=== PATIENT | male | born 1940 | race Caucasian/White ===

== ENCOUNTER → 2017-08-30 09:59 | Outpatient (CLI) | payer MEDICARE, OTHER, SELFPAY ==
[2017-08-30 12:32] LABS: Absolute Neutrophil Count 4.2 X10^3/uL (2.0-7.7); Basophil# 0.01 X10^3/uL; Basophil% 0.1 % (0-1); Eosinophil# 0.34 X10^3/uL; Eosinophils% 4.9 % (0-5); Hematocrit 42.2 % (40-54); Hemoglobin 13.8 g/dl (13.0-16.5); Lymphocyte % 24.4 % (19-41); Mean Corp Hgb Conc 32.7 g/gl (32-36); Mean Corpuscular Hgb 30.7 pg (27.0-32.0); Mean Platelet Vol. 10.9 fl (6.2-12.0); Monocyte# 0.66 X10^3/uL; Monocyte% 9.5 % (0-10); Neutrophil # 4.24 X10^3/uL (2.7-7.7); Platelet Count 200 K/mm3 (150-450); RBC Distribution Width CV 12.7 % (11.6-14.6); RBC Distribution Width SD 43.4 fl (35.1-43.9); Red Blood Count 4.49 M/mm3 (4.6-6.2)
[2017-08-30 12:35] LABS: POSITIVE COUNT NO; POSITIVE DIFFERENTIAL NO; POSITIVE MORPHOLOGY NO
[2017-08-30 13:05] LABS: Vitamin D,25 Hydroxy 22.8 ng/mL (19.95-100.01)
[2017-08-30 13:17] LABS: ALB/GLOB Ratio 1.2 RATIO (0.9-2.4); AST(SGOT) 17 U/L (15-37); Alanine Aminotransfer ALT/SGPT 26 U/L (16-61); Albumin, Serum 3.4 g/dL (3.2-5.0); Alkaline Phosphatase 62 U/L (45-117); Anion Gap 8 (5-15); BUN 19 mg/dL (7-18); BUN/Creat Ratio 19.3 RATIO (10-20); Calcium,Total 8.3 mg/dL (8.5-10.1); Chloride 105 mmol/L (98-107); Creatinine, Serum 0.98 mg/dL (0.70-1.30); EST Glomerular Filtration Rate 79 mL/min (>60); Est Glom Filt Rate - Afr Amer 95 mL/min (>60); Globulin 2.9 g/dL (2.2-4.2); Glucose 64 mg/dL (74-106); Potassium 3.7 mmol/L (3.5-5.1); Protein, Total 6.3 g/dL (6.4-8.2); Sodium Level 142 mmol/L (136-145); Thyroid Stim Hormone (TSH) 1.66 uIU/mL (0.358-3.74)
== END ==
PROVIDERS: Family Provider Family Medicine Geriatric Medicine; PCP Family Medicine Geriatric Medicine; Visit Provider Family Medicine Geriatric Medicine
DX: R53.83 Other fatigue (principal); E55.9 Vitamin D deficiency, unspecified
CPT/HCPCS: 36415; 80053; 82306; 84443; 85025

== ENCOUNTER → 2017-09-06 13:42 | Outpatient (CLI) | payer MEDICARE, OTHER, SELFPAY ==
--- NOTE | 2017-09-06 15:06 | NEURO ---
NCS and/or EMG Patient Report Ordering Doctor: Navi Crews Chi DATE OF SERVICE: 09/06/17 Veronica Thapa is a 76-year-old male with chief complaint of bilateral hand numbness. He presents for electrodiagnostic testing of the upper limbs. Letter diagnostic findings: Right median motor nerve demonstrates mildly prolonged distal latency with normal amplitude and conduction velocity. Left median motor nerve demonstrates borderline prolonged distal latency with normal amplitude and conduction velocity. Normal ulnar motor response bilaterally. Normal median and ulnar F waves. Prolonged median sensory latency is noted bilaterally. Normal ulnar and radial sensory responses. On needle EMG, all muscles tested in the upper limbs showed no evidence of denervation with normal motor unit action potentials. Electrodiagnostic impression: This is an abnormal study in the upper limbs. 1. Electrodiagnostic findings demonstrate bilateral median mononeuropathy. This is consistent with a mild bilateral carpal tunnel syndrome. If there are any questions in regards to this exam, please do not hesitate to contact me.
== END ==
PROVIDERS: Family Provider Family Medicine Geriatric Medicine; PCP Family Medicine Geriatric Medicine; Visit Provider Family Medicine Geriatric Medicine
DX: R20.0 Anesthesia of skin (principal)
CPT/HCPCS: 95886; 95912

== ENCOUNTER → 2018-02-28 11:07 | Outpatient (CLI) | payer MEDICARE, OTHER, SELFPAY ==
[2018-02-28 13:13] LABS: Absolute Lymphocyte Count 1.41 X10^3/ul (0.83-4.51); Basophil# 0.02 X10^3/uL; Basophil% 0.3 % (0-1); Eosinophil# 0.25 X10^3/uL; Hemoglobin 13.8 g/dl (13.0-16.5); Lymphocyte # 1.41 X10^3/ul (4.0); Lymphocyte % 22.7 % (19-41); Mean Corp Hgb Conc 33.7 g/gl (32-36); Mean Corpuscular Volume 92.1 fL (80-94); Mean Platelet Vol. 10.5 fl (6.2-12.0); Monocyte# 0.58 X10^3/uL; Monocyte% 9.3 % (0-10); Neutrophil # 3.95 X10^3/uL (2.7-7.7); Neutrophil % 63.5 % (47-70); POSITIVE COUNT NO; POSITIVE DIFFERENTIAL NO; POSITIVE MORPHOLOGY NO; Platelet Count 189 K/mm3 (150-450); RBC Distribution Width CV 12.7 % (11.6-14.6); RBC Distribution Width SD 42.8 fl (35.1-43.9); Red Blood Count 4.45 M/mm3 (4.6-6.2); White Blood Count 6.2 K/mm3 (4.4-11.0)
[2018-02-28 13:28] LABS: Vitamin D,25 Hydroxy 26.5 ng/mL (29.95-100.01)
[2018-02-28 13:35] LABS: ALB/GLOB Ratio 1.1 RATIO (0.9-2.4); AST(SGOT) 17 U/L (15-37); Alanine Aminotransfer ALT/SGPT 24 U/L (16-61); Albumin, Serum 3.3 g/dL (3.2-5.0); Alkaline Phosphatase 65 U/L (45-117); Anion Gap 8 (5-15); BUN 18 mg/dL (7-18); BUN/Creat Ratio 15.4 RATIO (10-20); Calcium,Total 8.3 mg/dL (8.5-10.1); Chloride 106 mmol/L (98-107); Creatinine, Serum 1.17 mg/dL (0.70-1.30); EST Glomerular Filtration Rate 64 mL/min (>60); Est Glom Filt Rate - Afr Amer 78 mL/min (>60); Glucose 81 mg/dL (74-106); Potassium 4.1 mmol/L (3.5-5.1); Protein, Total 6.3 g/dL (6.4-8.2); Sodium Level 141 mmol/L (136-145); Thyroid Stim Hormone (TSH) 1.61 uIU/mL (0.358-3.74)
== END ==
PROVIDERS: Family Provider Family Medicine Geriatric Medicine; PCP Family Medicine Geriatric Medicine; Visit Provider Family Medicine Geriatric Medicine
DX: R53.83 Other fatigue (principal); E55.9 Vitamin D deficiency, unspecified
CPT/HCPCS: 36415; 80053; 82306; 84443; 85025

== ENCOUNTER → 2018-03-29 15:33 | Outpatient (CLI) | payer MEDICARE, OTHER, SELFPAY ==
[2018-03-29 17:06] LABS: Absolute Lymphocyte Count 1.82 X10^3/ul (0.83-4.51); Absolute Neutrophil Count 4.3 X10^3/uL (2.0-7.7); Basophil# 0.03 X10^3/uL; Basophil% 0.4 % (0-1); Eosinophil# 0.33 X10^3/uL; Eosinophils% 4.6 % (0-5); Hematocrit 42.1 % (40-54); Hemoglobin 14.2 g/dl (13.0-16.5); Lymphocyte # 1.82 X10^3/ul (4.0); Lymphocyte % 25.5 % (19-41); Mean Corp Hgb Conc 33.7 g/gl (32-36); Mean Corpuscular Hgb 30.9 pg (27.0-32.0); Mean Corpuscular Volume 91.7 fL (80-94); Mean Platelet Vol. 11.4 fl (6.2-12.0); Monocyte# 0.65 X10^3/uL; Monocyte% 9.1 % (0-10); Neutrophil % 60.1 % (47-70); Platelet Count 206 K/mm3 (150-450); RBC Distribution Width CV 13.2 % (11.6-14.6); RBC Distribution Width SD 43.7 fl (35.1-43.9); Red Blood Count 4.59 M/mm3 (4.6-6.2); White Blood Count 7.2 K/mm3 (4.4-11.0)
[2018-03-29 17:07] LABS: POSITIVE COUNT NO; POSITIVE DIFFERENTIAL NO; POSITIVE MORPHOLOGY NO
[2018-03-29 17:23] LABS: ALB/GLOB Ratio 1.3 RATIO (0.9-2.4); AST(SGOT) 19 U/L (15-37); Alanine Aminotransfer ALT/SGPT 27 U/L (16-61); Albumin, Serum 3.6 g/dL (3.2-5.0); Alkaline Phosphatase 61 U/L (45-117); Anion Gap 9 (5-15); BUN 17 mg/dL (7-18); BUN/Creat Ratio 15.3 RATIO (10-20); Calcium,Total 8.3 mg/dL (8.5-10.1); Chloride 106 mmol/L (98-107); Creatinine, Serum 1.11 mg/dL (0.70-1.30); EST Glomerular Filtration Rate 68 mL/min (>60); Est Glom Filt Rate - Afr Amer 83 mL/min (>60); Globulin 2.8 g/dL (2.2-4.2); Glucose 78 mg/dL (74-106); Potassium 3.9 mmol/L (3.5-5.1); Protein, Total 6.4 g/dL (6.4-8.2); Sodium Level 140 mmol/L (136-145); Thyroid Stim Hormone (TSH) 1.58 uIU/mL (0.358-3.74)
== END ==
PROVIDERS: Family Provider Family Medicine Geriatric Medicine; PCP Family Medicine Geriatric Medicine; Visit Provider Family Medicine Geriatric Medicine
DX: R53.83 Other fatigue (principal)
CPT/HCPCS: 36415; 80053; 84443; 85025

== ENCOUNTER → 2018-08-16 11:49 | Outpatient (CLI) | payer MEDICARE, SELFPAY ==
[2018-04-26 09:35] VITALS: BMI 23.5
== END ==
PROVIDERS: Family Provider Family Medicine Geriatric Medicine; PCP Family Medicine Geriatric Medicine; Referring Provider Family Medicine Geriatric Medicine; Visit Provider Family Medicine Geriatric Medicine
DX: R50.9 Fever, unspecified (principal)
CPT/HCPCS: 87633

== ENCOUNTER → 2018-08-31 11:56 | Outpatient (CLI) | payer MEDICARE, SELFPAY ==
[2018-04-26 09:35] VITALS: BMI 23.5
[2018-08-31 13:14] LABS: Absolute Lymphocyte Count 2.21 X10^3/ul (0.83-4.51); Absolute Neutrophil Count 7.5 X10^3/uL (2.0-7.7); Basophil# 0.03 X10^3/uL; Basophil% 0.3 % (0-1); Eosinophil# 0.19 X10^3/uL; Eosinophils% 1.7 % (0-5); Hematocrit 46.7 % (40-54); Hemoglobin 15.4 g/dl (13.0-16.5); Lymphocyte # 2.21 X10^3/ul (4.0); Lymphocyte % 20.1 % (19-41); Mean Platelet Vol. 10.8 fl (6.2-12.0); Monocyte# 0.93 X10^3/uL; Monocyte% 8.5 % (0-10); Neutrophil # 7.52 X10^3/uL (2.7-7.7); Neutrophil % 68.4 % (47-70); Platelet Count 169 K/mm3 (150-450); RBC Distribution Width CV 13.4 % (11.6-14.6); RBC Distribution Width SD 44.4 fl (35.1-43.9); Red Blood Count 4.97 M/mm3 (4.6-6.2)
[2018-08-31 13:16] LABS: POSITIVE COUNT NO; POSITIVE DIFFERENTIAL NO; POSITIVE MORPHOLOGY NO
[2018-08-31 13:44] LABS: ALB/GLOB Ratio 1.3 RATIO (0.9-2.4); AST(SGOT) 20 U/L (15-37); Alanine Aminotransfer ALT/SGPT 53 U/L (16-61); Albumin, Serum 3.5 g/dL (3.2-5.0); Alkaline Phosphatase 74 U/L (45-117); Anion Gap 6 (5-15); BUN 19 mg/dL (7-18); Calcium,Total 8.7 mg/dL (8.5-10.1); Chloride 105 mmol/L (98-107); Creatinine, Serum 1.27 mg/dL (0.70-1.30); EST Glomerular Filtration Rate 59 mL/min (>60); Est Glom Filt Rate - Afr Amer 71 mL/min (>60); Globulin 2.7 g/dL (2.2-4.2); Glucose 69 mg/dL (74-106); Potassium 4.5 mmol/L (3.5-5.1); Protein, Total 6.2 g/dL (6.4-8.2); Sodium Level 141 mmol/L (136-145); Thyroid Stim Hormone (TSH) 1.32 uIU/mL (0.358-3.74)
[2018-08-31 14:25] LABS: Vitamin D,25 Hydroxy 18.7 ng/mL (29.95-100.01)
== END ==
PROVIDERS: Family Provider Family Medicine Geriatric Medicine; PCP Family Medicine Geriatric Medicine; Visit Provider Family Medicine Geriatric Medicine
DX: R53.83 Other fatigue (principal); E55.9 Vitamin D deficiency, unspecified
CPT/HCPCS: 36415; 80053; 82306; 84443; 85025

== ENCOUNTER → 2019-03-04 08:53 | Outpatient (CLI) | payer MEDICARE, SELFPAY ==
[2018-04-26 09:35] VITALS: BMI 23.5
[2019-03-04 11:27] LABS: Absolute Lymphocyte Count 1.31 X10^3/uL (0.83-4.51); Absolute Neutrophil Count 3.7 X10^3/uL (2.0-7.7); Basophil# 0.03 X10^3/uL; Basophil% 0.5 % (0-1); Eosinophil# 0.24 X10^3/uL; Eosinophils% 4.2 % (0-5); Hemoglobin 14.3 g/dL (13.0-16.5); Lymphocyte # 1.31 X10^3/ul (4.0); Lymphocyte % 22.9 % (19-41); Mean Corpuscular Hgb 31.4 pg (27.0-32.0); Mean Corpuscular Volume 92.1 fL (80-94); Mean Platelet Vol. 10.7 fl (6.2-12.0); Monocyte# 0.46 X10^3/uL; Monocyte% 8.1 % (0-10); NRBC Flagged by Analyzer 0 % (0-5); Neutrophil # 3.65 X10^3/uL (2.7-7.7); Neutrophil % 63.9 % (47-70); Platelet Count 192 K/mm3 (150-450); RBC Distribution Width CV 12.8 % (11.6-14.6); Red Blood Count 4.56 M/mm3 (4.6-6.2); White Blood Count 5.7 K/mm3 (4.4-11.0)
[2019-03-04 11:47] LABS: Vitamin D,25 Hydroxy 23.3 ng/mL (29.95-100.01)
[2019-03-04 11:55] LABS: BUN 17 mg/dL (7-18); Creatinine, Serum 1.23 mg/dL (0.70-1.30); Glucose 106 mg/dL (74-106)
[2019-03-04 11:56] LABS: ALB/GLOB Ratio 1.2 RATIO (0.9-2.4); AST(SGOT) 17 U/L (15-37); Alanine Aminotransfer ALT/SGPT 32 U/L (16-61); Albumin, Serum 3.5 g/dL (3.2-5.0); Alkaline Phosphatase 62 U/L (45-117); Anion Gap 7 (5-15); BUN/Creat Ratio 13.8 RATIO (10-20); Calcium,Total 8.7 mg/dL (8.5-10.1); Chloride 108 mmol/L (98-107); EST Glomerular Filtration Rate 61 mL/min (>60); Est Glom Filt Rate - Afr Amer 73 mL/min (>60); Globulin 2.9 g/dL (2.2-4.2); Potassium 3.9 mmol/L (3.5-5.1); Protein, Total 6.4 g/dL (6.4-8.2); Sodium Level 140 mmol/L (136-145); Thyroid Stim Hormone (TSH) 2.19 uIU/mL (0.358-3.74)
== END ==
PROVIDERS: Family Provider Family Medicine Geriatric Medicine; PCP Family Medicine Geriatric Medicine; Visit Provider Family Medicine Geriatric Medicine
DX: R53.83 Other fatigue (principal); E55.9 Vitamin D deficiency, unspecified
CPT/HCPCS: 36415; 80053; 82306; 84443; 85025

== ENCOUNTER → 2019-05-22 10:39 | Outpatient (CLI) | payer MEDICARE, SELFPAY ==
[2019-04-30 08:04] VITALS: BMI 24.7
--- NOTE | 2019-05-22 10:50 | RAD_ITS ---
STUDY: X-RAY - ABDOMEN/PELVIS REASON FOR EXAM: Male, 78 years old. Abdominal pain, fecal impaction TECHNIQUE: AP supine and upright views of the abdomen and pelvis. COMPARISON: None. FINDINGS: Normal visualized lung bases. There is an unremarkable bowel gas pattern. There is no demonstrated free abdominal air. The visualized liver, spleen and kidneys are grossly normal in size and morphology. Normal soft tissue structures. Moderate dextroscoliosis of the lumbar spine with diffuse degenerative disc disease. RAD/Abd Inc Decub and/or Erect IMPRESSION: Normal x-ray examination of the abdomen and pelvis. Electronically Signed: Leo Colorado MD at 16:52 EST Tel , Service support ,
== END ==
PROVIDERS: Family Provider Family Medicine Geriatric Medicine; PCP Family Medicine Geriatric Medicine; Referring Provider Family Medicine Geriatric Medicine; Visit Provider Family Medicine Geriatric Medicine
DX: K56.41 Fecal impaction (principal)
CPT/HCPCS: 74019

== ENCOUNTER → 2019-09-02 10:00 | Outpatient (CLI) | payer MEDICARE, SELFPAY ==
[2019-04-30 08:04] VITALS: BMI 24.7
[2019-09-02 12:18] LABS: Absolute Lymphocyte Count 1.54 X10^3/uL (0.83-4.51); Absolute Neutrophil Count 4.7 X10^3/uL (2.0-7.7); Basophil# 0.04 X10^3/uL; Basophil% 0.6 % (0-1); Eosinophil# 0.29 X10^3/uL; Eosinophils% 4.1 % (0-5); Hematocrit 48.5 % (40-54); Hemoglobin 15.8 g/dL (13.0-16.5); Lymphocyte # 1.54 X10^3/ul (4.0); Lymphocyte % 21.7 % (19-41); Mean Corp Hgb Conc 32.6 g/dL (32-36); Mean Corpuscular Hgb 30.9 pg (27.0-32.0); Mean Corpuscular Volume 94.7 fL (80-94); Mean Platelet Vol. 10.8 fl (6.2-12.0); Monocyte# 0.51 X10^3/uL; Monocyte% 7.2 % (0-10); NRBC Flagged by Analyzer 0 % (0-5); Platelet Count 199 K/mm3 (150-450); RBC Distribution Width CV 12.3 % (11.6-14.6); RBC Distribution Width SD 43.3 fl (35.1-43.9); Red Blood Count 5.12 M/mm3 (4.6-6.2); White Blood Count 7.1 K/mm3 (4.4-11.0)
[2019-09-02 12:34] LABS: ALB/GLOB Ratio 1.1 RATIO (0.9-2.4); AST(SGOT) 15 U/L (15-37); Alanine Aminotransfer ALT/SGPT 32 U/L (16-61); Albumin, Serum 3.6 g/dL (3.2-5.0); Alkaline Phosphatase 68 U/L (45-117); Anion Gap 7 (5-15); BUN 19 mg/dL (7-18); BUN/Creat Ratio 14.4 RATIO (10-20); Calcium,Total 8.7 mg/dL (8.5-10.1); Chloride 105 mmol/L (98-107); Creatinine, Serum 1.32 mg/dL (0.70-1.30); EST Glomerular Filtration Rate 56 mL/min (>60); Est Glom Filt Rate - Afr Amer 68 mL/min (>60); Globulin 3.3 g/dL (2.2-4.2); Glucose 82 mg/dL (74-106); Protein, Total 6.9 g/dL (6.4-8.2); Sodium Level 140 mmol/L (136-145)
[2019-09-03 09:10] LABS: Vitamin D,25 Hydroxy 24.5 ng/mL
== END ==
PROVIDERS: PCP Family Medicine Geriatric Medicine; Visit Provider Family Medicine Geriatric Medicine
DX: R53.83 Other fatigue (principal); E55.9 Vitamin D deficiency, unspecified
CPT/HCPCS: 36415; 80053; 82306; 84443; 85025

== ENCOUNTER → 2020-03-12 11:23 | Outpatient (CLI) | payer MEDICARE, SELFPAY ==
[2019-04-30 08:04] VITALS: BMI 24.7
[2020-03-12 12:50] LABS: Absolute Lymphocyte Count 1.64 X10^3/uL (0.83-4.51); Absolute Neutrophil Count 3.7 X10^3/uL (2.0-7.7); Basophil# 0.04 X10^3/uL; Basophil% 0.6 % (0-1); Eosinophil# 0.38 X10^3/uL; Eosinophils% 6.1 % (0-5); Hematocrit 44.3 % (40-54); Hemoglobin 14.6 g/dL (13.0-16.5); Lymphocyte # 1.64 X10^3/ul (4.0); Lymphocyte % 26.2 % (19-41); Mean Corpuscular Hgb 31.4 pg (27.0-32.0); Mean Corpuscular Volume 95.3 fL (80-94); Mean Platelet Vol. 10.7 fl (6.2-12.0); Monocyte# 0.49 X10^3/uL; Monocyte% 7.8 % (0-10); NRBC Flagged by Analyzer 0 % (0-5); Neutrophil # 3.67 X10^3/uL (2.7-7.7); Neutrophil % 58.5 % (47-70); Platelet Count 228 K/mm3 (150-450); RBC Distribution Width CV 12.3 % (11.6-14.6); RBC Distribution Width SD 42.9 fl (35.1-43.9); Red Blood Count 4.65 M/mm3 (4.6-6.2); White Blood Count 6.3 K/mm3 (4.4-11.0)
[2020-03-12 13:18] LABS: Vitamin D,25 Hydroxy 35.5 ng/mL
[2020-03-12 13:29] LABS: ALB/GLOB Ratio 1.2 RATIO (0.9-2.4); AST(SGOT) 17 U/L (15-37); Alanine Aminotransfer ALT/SGPT 24 U/L (16-61); Albumin, Serum 3.5 g/dL (3.2-5.0); Alkaline Phosphatase 79 U/L (45-117); Anion Gap 4 (5-15); BUN 14 mg/dL (7-18); BUN/Creat Ratio 10.9 RATIO (10-20); Calcium,Total 8.1 mg/dL (8.5-10.1); Chloride 107 mmol/L (98-107); Creatinine, Serum 1.28 mg/dL (0.70-1.30); EST Glomerular Filtration Rate 58 mL/min (>60); Est Glom Filt Rate - Afr Amer 70 mL/min (>60); Globulin 2.9 g/dL (2.2-4.2); Glucose 96 mg/dL (74-106); Potassium 3.8 mmol/L (3.5-5.1); Protein, Total 6.4 g/dL (6.4-8.2); Sodium Level 139 mmol/L (136-145); Thyroid Stim Hormone (TSH) 1.69 uIU/mL (0.358-3.74)
== END ==
PROVIDERS: PCP Family Medicine Geriatric Medicine; Visit Provider Family Medicine Geriatric Medicine
DX: R53.83 Other fatigue (principal); E55.9 Vitamin D deficiency, unspecified
CPT/HCPCS: 36415; 80053; 82306; 84443; 85025

== ENCOUNTER → 2020-05-26 11:56 | Outpatient (CLI) | payer MEDICARE, SELFPAY ==
[2019-04-30 08:04] VITALS: BMI 24.7
[2020-05-26 12:55] LABS: Anion Gap 3 (5-15); BUN 13 mg/dL (7-18); BUN/Creat Ratio 10.6 RATIO (10-20); CRP 4.83 mg/L (0.0-3.0); Calcium,Total 8.3 mg/dL (8.5-10.1); Chloride 109 mmol/L (98-107); Creatinine, Serum 1.23 mg/dL (0.70-1.30); EST Glomerular Filtration Rate 60 mL/min (>60); Est Glom Filt Rate - Afr Amer 73 mL/min (>60); Glucose 84 mg/dL (74-106); Sodium Level 141 mmol/L (136-145)
[2020-05-26 12:59] LABS: Erythrocyte Sedimentation Rate 2 mm/hr (0-20)
[2020-05-26 13:51] LABS: M R Staph aureus DNA By PCR Negative (Negative); Probe Check PASS; Specimen Processing Control PASS; Staph aureus DNA By PCR NEGATIVE (Negative)
[2020-05-26 13:56] LABS: Absolute Neutrophil Count 4.1 X10^3/uL (2.0-7.7); Basophil# 0.03 X10^3/uL; Basophil% 0.5 % (0-1); Eosinophil# 0.48 X10^3/uL; Eosinophils% 7.3 % (0-5); Hematocrit 45.6 % (40-54); Hemoglobin 14.6 g/dL (13.0-16.5); Lymphocyte % 21.3 % (19-41); Mean Corpuscular Hgb 30.9 pg (27.0-32.0); Mean Corpuscular Volume 96.6 fL (80-94); Mean Platelet Vol. 10.6 fl (6.2-12.0); Monocyte# 0.53 X10^3/uL; Monocyte% 8.1 % (0-10); NRBC Flagged by Analyzer 0 % (0-5); Neutrophil # 4.11 X10^3/uL (2.7-7.7); Neutrophil % 62.3 % (47-70); Platelet Count 217 K/mm3 (150-450); RBC Distribution Width CV 12.6 % (11.6-14.6); RBC Distribution Width SD 45.1 fl (35.1-43.9); Red Blood Count 4.72 M/mm3 (4.6-6.2); White Blood Count 6.6 K/mm3 (4.4-11.0)
== END ==
PROVIDERS: PCP Family Medicine Geriatric Medicine; Visit Provider Family Medicine Geriatric Medicine
DX: T07.XXXA Unspecified multiple injuries, initial encounter (principal); B95.62 Methicillin resistant Staphylococcus aureus infection as the cause of diseases classified elsewhere
CPT/HCPCS: 80048; 85025; 85652; 86140; 87070; 87205; 87640

== ENCOUNTER → 2020-07-20 09:40 | Outpatient (CLI) | payer MEDICARE, OTHER, SELFPAY ==
[2020-07-20 11:55] LABS: Absolute Lymphocyte Count 1.55 X10^3/uL (0.83-4.51); Absolute Neutrophil Count 4.6 X10^3/uL (2.0-7.7); Basophil# 0.05 X10^3/uL; Basophil% 0.7 % (0-1); Eosinophil# 0.27 X10^3/uL; Eosinophils% 3.8 % (0-5); Hematocrit 46.3 % (40-54); Hemoglobin 15.4 g/dL (13.0-16.5); Lymphocyte # 1.55 X10^3/ul (4.0); Mean Corp Hgb Conc 33.3 g/dL (32-36); Mean Corpuscular Hgb 31.2 pg (27.0-32.0); Mean Corpuscular Volume 93.7 fL (80-94); Mean Platelet Vol. 10.5 fl (6.2-12.0); Monocyte# 0.52 X10^3/uL; Monocyte% 7.4 % (0-10); NRBC Flagged by Analyzer 0 % (0-5); Neutrophil % 65.5 % (47-70); Platelet Count 224 K/mm3 (150-450); RBC Distribution Width CV 12.4 % (11.6-14.6); RBC Distribution Width SD 42.8 fl (35.1-43.9); Red Blood Count 4.94 M/mm3 (4.6-6.2)
[2020-07-20 12:16] LABS: ALB/GLOB Ratio 1.2 RATIO (0.9-2.4); AST(SGOT) 13 U/L (15-37); Alanine Aminotransfer ALT/SGPT 30 U/L (16-61); Albumin, Serum 3.6 g/dL (3.2-5.0); Alkaline Phosphatase 72 U/L (45-117); Anion Gap 4 (5-15); BUN 13 mg/dL (7-18); BUN/Creat Ratio 10.6 RATIO (10-20); Calcium,Total 8.7 mg/dL (8.5-10.1); Chloride 106 mmol/L (98-107); Creatinine, Serum 1.23 mg/dL (0.70-1.30); EST Glomerular Filtration Rate 60 mL/min (>60); Est Glom Filt Rate - Afr Amer 73 mL/min (>60); Globulin 2.9 g/dL (2.2-4.2); Glucose 103 mg/dL (74-106); Potassium 3.6 mmol/L (3.5-5.1); Protein, Total 6.5 g/dL (6.4-8.2); Sodium Level 140 mmol/L (136-145)
== END ==
PROVIDERS: PCP Family Medicine Geriatric Medicine; Visit Provider Family Medicine Geriatric Medicine
DX: F05 Delirium due to known physiological condition (principal); N39.0 Urinary tract infection, site not specified
CPT/HCPCS: 36415; 80053; 85025; 87086; 87088

== ENCOUNTER → 2020-09-04 10:52 | Outpatient (CLI) | payer MEDICARE, OTHER, SELFPAY ==
[2020-09-04 13:15] LABS: Absolute Lymphocyte Count 1.63 X10^3/uL (0.83-4.51); Absolute Neutrophil Count 4.3 X10^3/uL (2.0-7.7); Basophil# 0.03 X10^3/uL; Basophil% 0.4 % (0-1); Eosinophil# 0.43 X10^3/uL; Eosinophils% 6.1 % (0-5); Hematocrit 46.5 % (40-54); Hemoglobin 14.9 g/dL (13.0-16.5); Lymphocyte # 1.63 X10^3/ul (4.0); Lymphocyte % 23.2 % (19-41); Mean Corpuscular Hgb 30.6 pg (27.0-32.0); Mean Corpuscular Volume 95.5 fL (80-94); Mean Platelet Vol. 10.7 fl (6.2-12.0); Monocyte# 0.62 X10^3/uL; Monocyte% 8.8 % (0-10); NRBC Flagged by Analyzer 0 % (0-5); Neutrophil # 4.28 X10^3/uL (2.7-7.7); Neutrophil % 61.1 % (47-70); Platelet Count 230 K/mm3 (150-450); RBC Distribution Width CV 12.6 % (11.6-14.6); RBC Distribution Width SD 44.3 fl (35.1-43.9); Red Blood Count 4.87 M/mm3 (4.6-6.2)
[2020-09-04 14:02] LABS: ALB/GLOB Ratio 1.2 RATIO (0.9-2.4); AST(SGOT) 14 U/L (15-37); Alanine Aminotransfer ALT/SGPT 25 U/L (16-61); Albumin, Serum 3.6 g/dL (3.2-5.0); Alkaline Phosphatase 69 U/L (45-117); Anion Gap 7 (5-15); BUN 14 mg/dL (7-18); BUN/Creat Ratio 10.8 RATIO (10-20); Calcium,Total 8.7 mg/dL (8.5-10.1); Chloride 106 mmol/L (98-107); EST Glomerular Filtration Rate 57 mL/min (>60); Est Glom Filt Rate - Afr Amer 69 mL/min (>60); Globulin 2.9 g/dL (2.2-4.2); Glucose 98 mg/dL (74-106); Potassium 4.1 mmol/L (3.5-5.1); Protein, Total 6.5 g/dL (6.4-8.2); Sodium Level 140 mmol/L (136-145); Thyroid Stim Hormone (TSH) 1.66 uIU/mL (0.358-3.74)
[2020-09-04 14:05] LABS: Vitamin D,25 Hydroxy 26.1 ng/mL
== END ==
PROVIDERS: PCP Family Medicine Geriatric Medicine; Visit Provider Family Medicine Geriatric Medicine
DX: R53.83 Other fatigue (principal); E55.9 Vitamin D deficiency, unspecified
CPT/HCPCS: 36415; 80053; 82306; 84443; 85025

== ENCOUNTER 2020-09-07 09:47 | Outpatient (RCR) | payer MEDICARE, OTHER, SELFPAY ==
[2019-04-30 08:04] VITALS: BMI 24.7
== END 2020-09-07 23:59 ==
LOC: IMMUN 09:47
PROVIDERS: PCP Family Medicine Geriatric Medicine; Visit Provider Family Medicine
DX: Z23 Encounter for immunization (principal)
CPT/HCPCS: 0011A; 0012A

== ENCOUNTER → 2020-12-03 14:01 | Outpatient (CLI) | payer MEDICARE, OTHER, SELFPAY ==
[2020-12-03 17:20] LABS: Absolute Lymphocyte Count 1.85 X10^3/uL (0.83-4.51); Absolute Neutrophil Count 4.1 X10^3/uL (2.0-7.7); Basophil# 0.03 X10^3/uL; Basophil% 0.4 % (0-1); Eosinophil# 0.33 X10^3/uL; Eosinophils% 4.7 % (0-5); Hematocrit 43.7 % (40-54); Hemoglobin 14.4 g/dL (13.0-16.5); Lymphocyte # 1.85 X10^3/ul (0.83-4.51); Lymphocyte % 26.5 % (19-41); Mean Corpuscular Volume 94.2 fL (80-94); Mean Platelet Vol. 10.8 fl (6.2-12.0); Monocyte# 0.61 X10^3/uL; Monocyte% 8.7 % (0-10); NRBC Flagged by Analyzer 0 % (0-5); Neutrophil # 4.13 X10^3/uL (2.7-7.7); Neutrophil % 59.1 % (47-70); Platelet Count 242 K/mm3 (150-450); RBC Distribution Width CV 12.6 % (11.6-14.6); Red Blood Count 4.64 M/mm3 (4.6-6.2)
[2020-12-03 17:36] LABS: Vitamin D,25 Hydroxy 25.4 ng/mL
[2020-12-03 17:49] LABS: ALB/GLOB Ratio 1.1 RATIO (0.9-2.4); AST(SGOT) 18 U/L (15-37); Alanine Aminotransfer ALT/SGPT 25 U/L (16-61); Albumin, Serum 3.4 g/dL (3.2-5.0); Alkaline Phosphatase 72 U/L (45-117); Anion Gap 3 (5-15); BUN 16 mg/dL (7-18); BUN/Creat Ratio 12.1 RATIO (10-20); Calcium,Total 8.6 mg/dL (8.5-10.1); Chloride 107 mmol/L (98-107); Creatinine, Serum 1.32 mg/dL (0.70-1.30); EST Glomerular Filtration Rate 56 mL/min (>60); Est Glom Filt Rate - Afr Amer 67 mL/min (>60); Glucose 91 mg/dL (74-106); Potassium 3.9 mmol/L (3.5-5.1); Protein, Total 6.4 g/dL (6.4-8.2); Sodium Level 139 mmol/L (136-145); Thyroid Stim Hormone (TSH) 1.44 uIU/mL (0.358-3.74)
== END ==
PROVIDERS: PCP Family Medicine Geriatric Medicine; Visit Provider Family Medicine Geriatric Medicine
DX: R53.83 Other fatigue (principal); E55.9 Vitamin D deficiency, unspecified
CPT/HCPCS: 36415; 80053; 82306; 84443; 85025

== ENCOUNTER 2021-03-01 10:43 | Observation (INO) | payer MEDICARE, OTHER, SELFPAY ==
[2021-03-01] VITALS (15 sets, daily range): BP systolic 107–159; BP diastolic 56–94; PULSE 60–79; RESP 12–21; TEMP 36.3–36.7; O2SAT 97–99; BMI 25.7; BMI 25.4
--- NOTE | 2021-03-01 10:47 | EDS_ITS ---
HPI History of Present Illness Chief Complaint: Neuro S/Sx Narrative Narrative: Patient presents with stroke symptoms that started about 10 AM. He has a history of dementia and he was found to have left arm and left leg weakness per paramedics as well as some mental status changes. When I saw him apparently his weakness was improved. I cannot get a history from him although he does have dementia. I cannot get a review of systems from him. He has some aphasia but otherwise no other focal deficits see NIH stroke scale. [facility] Medical History (Updated 03/01/21 @ 11:[address] Albert Jeffrey MD) Alzheimer disease CVA (cerebral vascular accident) (~2013) Mixed hyperlipidemia Near syncope (02/14/17) Osteoarthritis Home Medications nortriptyline 25 mg PO QHS 02/29/16 [History Last Taken 02/13/17] memantine 28 mg PO DAILY 02/14/17 [History Last Taken 02/14/17] ipratropium bromide 42 mcg (0.06 %) nasal spray 2 spray INTRANASAL BID PRN PRN #15 ml 04/26/18 [Rx Last Taken Unknown] buspirone 5 mg tablet 5 mg PO DAILY tab 04/30/19 [History Last Taken Unknown] citalopram 20 mg tablet 20 mg PO DAILY 04/30/19 [History Last Taken Unknown] multivitamin 1 cap PO DAILY 04/30/19 [History Last Taken Unknown] donepezil 10 mg tablet 10 mg PO DAILY 05/16/19 [History Last Taken Unknown] clonazepam 0.5 - 1.5 mg PO DAILY PRN 03/01/21 [History Last Taken Unknown] quetiapine 25 mg PO QHS 03/01/21 [History Last Taken Unknown] Allergy/AdvReac Type Severity Reaction Status Date / Time No Known Allergies Allergy Verified 06/17/20 13:06 Surgical History History of knee replacement Social History (Updated 06/17/20 @ 13:[address], [place]) Smoking Status: Former smoker alcohol intake: never substance use type: does not use what type of physical activity do you participate in: aerobics and weight training frequency: 3-4 times per week ROS ROS ED Review of Systems ROS Unobtainable: due to mental status EXAM Physical Exam Const Vital Signs: 03/01/21 10:46 03/01/21 10:51 03/01/21 10:53 Temperature 97.9 F Temperature Source Temporal Pulse Rate 70 70 70 Respiratory Rate 18 18 Blood Pressure 110/70 110/70 110/70 Blood Pressure Mean 83 83 83 Pulse Ox Oxygen Delivery Method Room Air Room Air Oxygen Flow Rate (L/min) 03/01/21 11:02 03/01/21 11:04 03/01/21 11:20 Temperature Temperature Source Pulse Rate 79 60 Respiratory Rate 21 H 13 Blood Pressure 107/75 Blood Pressure Mean 85 Pulse Ox 97 98 Oxygen Delivery Method Room Air Room Air Room Air Oxygen Flow Rate (L/min) 97 Physical exam General: Patient appears chronically ill, he does not appear acutely ill. He is comfortable in bed. Head: Normocephalic, Atraumatic Eyes: Conjunctiva not pale ENT: Slightly dry mucous membranes Neck: Supple, Nontender, No lymphadenopathy Cardiovascular: Regular rate, Regular rhythm Respiratory: No distress, CTA bilaterally Abdomen: Soft, Nontender, Nondistended Back: Nontender, Normal Inspection. Negative for: CVA tenderness Extremities: Nontender, No edema Skin: Normal color, No rash Neurological: see NIH stroke scale below STROKE Vital Signs/Narrative: Vital Signs Temp Pulse Resp BP Pulse Ox 03/01/21 11:20 60 13 107/75 98 03/01/21 11:02 79 21 H 97 03/01/21 10:53 97.9 F 70 18 110/70 03/01/21 10:51 70 110/70 03/01/21 10:46 70 18 110/70 NIHSS Initial: 1a Level of Consciousness: 0 1b LOC Questions (Score 2 if aphasic/stupor): 2 1c LOC Commands (Only score 1st attempt): 0 2 Best Gaze (If aphasic, use reflexive mvmts.): 0 3 Visual: 0 4 Facial Palsy: 0 5 Motor Arm Right (UN = amputation/fusion): 0 5 Motor Arm Left: 0 6 Motor Leg Right: 0 6 Motor Leg Left: 0 7 Limb ataxia (Only + if out of proportion): 0 8 Sensory (Aphasia/stupor=0 or 1, coma=2): 0 9 Best Language: 1 10 Dysarthria (mute, coma=2, intubated=UN): 0 11 Extinction and Inattention (only scored if +): 0 Total Score: 3 MDM MDM MDM Narrative Medical decision making narrative: A stroke team was called and stroke protocol was followed. Patient's initial NIH was 3 however I repeated the NIH after CT and it was a 2 these were secondary to level of consciousness he had no longer had aphasia. These level consciousness per his for chronic thus he is back to baseline. Because he returned to baseline he does not meet criteria for TPA. He was seen by the stroke neurologist at [facility] who agrees. Patient will be admitted for further work-up and MRI. Lab Data Labs: Laboratory Results - last 24 hr 03/01/21 03/01/21 03/01/21 10:30 10:30 11:05 WBC 7.2 RBC 4.70 Hgb 14.7 Hct 44.2 MCV 94.0 MCH 31.3 MCHC 33.3 RDW Std Deviation 43.5 RDW Coeff of Nya 12.6 Plt Count 214 MPV 10.2 Immature Gran % (Auto) 0.800 Neut % (Auto) 69.4 Lymph % (Auto) 17.6 L [place] % (Auto) 8.3 Eos % (Auto) 3.3 Baso % (Auto) 0.6 Absolute Neuts (auto) 5.0 Absolute Lymphs (auto) 1.27 Nucleated RBC % 0 PT 13.3 INR 1.1 APTT 28.3 Sodium 139 Potassium 4.1 Chloride 108 H Carbon Dioxide 26.0 Anion Gap 5 BUN 16 Creatinine 1.27 Estim Creat Clear Calc 50.23 Est GFR (MDRD) Af Amer 70 Est GFR (MDRD) Non-Af 58 L BUN/Creatinine Ratio 12.6 Glucose 123 H Calcium 9.0 Troponin I High Sens 7 Radiography Diagnostic Testing: Radiology Impression Brain CT 03/01/21 10:50 IMPRESSION: Chronic involutional changes of the brain. N.B. : The above Results were Read Back by Fitz Moody MD to Dr Yeny MD, and understanding confirmed on 03/01/2021 11:06:10 (ET). Electronically Signed: Fitz Moody MD at 11:07 EDT , Service support , ADDENDUM: 03/01/21 1114 IMPRESSION: Chronic involutional changes of the brain. N.B. : The above Results were Read Back by Fitz Moody MD to Dr Yeny MD, and understanding confirmed on 03/01/2021 11:06:10 (ET). Electronically Signed: Fitz Moody MD at 11:07 EDT , Service support , Head/Neck CTA 03/01/21 10:51 IMPRESSION: Atherosclerotic plaque formation at the origin of the left internal carotid artery causing less than 50% luminal stenosis. N.B. : The above Results were Read Back by Ftiz Moody MD to albert jeffrey and understanding confirmed on 03/01/2021 11:14:16 (ET). Electronically Signed: Fitz Moody MD at 11:15 EDT , Service support , ADDENDUM: 03/01/21 1122 IMPRESSION: Atherosclerotic plaque formation at the origin of the left internal carotid artery causing less than 50% luminal stenosis. N.B. : The above Results were Read Back by Fitz Moody MD to albert jeffrey and understanding confirmed on 03/01/2021 11:14:16 (ET). Electronically Signed: Fitz Moody MD at 11:15 EDT , Service support , Chest X-Ray 03/01/21 11:23 IMPRESSION: Findings suggestive of a mild degree of left basilar atelectasis. Electronically Signed: Fitz Moody MD at 11:39 EDT , Service support , Critical Care Time Critical Care Time: Yes Critical care time (excluding procedures): - (Critical care time of 35 minutes. Patient was in acute stroke team, I discussed with radiology, neurology, hospitalist. I spent time documenting, time spent with family as well as exam.) Discharge Plan Dx/Rx/DC Orders Clinical Impression: Brain TIA Disposition Disposition: Acute Care Hospital [facility]
--- NOTE | 2021-03-01 10:50 | EKG12_ITS ---
Test Reason : STROKE TEAM Blood Pressure : / mmHG Vent. Rate : 068 BPM Atrial Rate : 068 BPM P-R Int : 178 ms QRS Dur : 092 ms QT Int : 404 ms P-R-T Axes : 027 027 061 degrees QTc Int : 429 ms Normal sinus rhythm Normal ECG Confirmed by FOUZIA MEYERS, PRETTY ([id number]), film or videotape editor MEJIA MEI ([id number]) on 03/04/2021 10:17:44 AM Referred By: THAIS Confirmed By:PRETTY FRAGOSO MD
--- NOTE | 2021-03-01 10:50 | CT_ITS ---
STUDY: CT HEAD STROKE PROTOCOL W/O CONTRAST INJECTION REASON FOR EXAM: Male, 80 years old. Neuro deficit, acute, stroke suspected RADIATION DOSAGE (If Supplied By Facility): CTDIvol = ( 44.99 ) mGy, DLP = ( 863.6 ) mGycm TECHNIQUE: Transaxial CT imaging of the brain was performed without administration of intravenous contrast material. Individualized dose optimization techniques were used for this CT. COMPARISON: Comparison is made with prior examination dated 06/19/2017. FINDINGS: Normal soft tissue structures. Normal calvarium. There is mild cerebral atrophy with widening of the extra-axial spaces and ventricular dilatation. There are areas of decreased attenuation within the white matter tracts of the supratentorial brain, consistent with microvascular disease changes. Normal basal ganglia and thalami. Normal brainstem. Normal cerebellum. There is no intracranial hemorrhage. There are no findings of an acute ischemic infarction. Atherosclerotic calcification of the cavernous portions of the internal carotid arteries bilaterally. Normal visualized paranasal sinuses. CT/STROKE Brain/Head without Cont IMPRESSION: Chronic involutional changes of the brain. N.B. : The above Results were Read Back by Fitz Moody MD to Dr Yeny MD, and understanding confirmed on 03/01/2021 11:06:10 (ET). Electronically Signed: Fitz Moody MD at 11:07 EDT , Service support ,
--- NOTE | 2021-03-01 10:51 | CT_ITS ---
STUDY: CTA HEAD AND NECK WITH CONTRAST REASON FOR EXAM: Male, 80 years old. Acute neurologic deficit, concern for stroke RADIATION DOSAGE (If Supplied By Facility): CTDIvol = ( 25.22 ) mGy, DLP = ( 709.36 ) mGycm TECHNIQUE: CT angiography was performed with a multi-detector CT scanner. Data acquisition was obtained from the skull base through the vertex following intravenous administration of IV 100mL [id number]. MIP images were reconstructed from the axial data set. Post-processing of the angiographic images was performed, with multiplanar reformation and 3D reconstruction. Individualized dose optimization techniques were used for this CT. COMPARISON: No relevant priors. FINDINGS: Normal bilateral petrous carotid arteries. There is calcified plaque formation of the right cavernous carotid artery, without a cross-sectional luminal stenosis. There is calcified plaque formation of the left cavernous carotid artery, without a cross-sectional luminal stenosis. Normal right A1 segments of the anterior cerebral artery. Normal left A1 segments of the anterior cerebral artery. Normal intact anterior communicating artery (ACOM). Normal bilateral A2 segments of the anterior cerebral arteries. Normal right M1 and M2 segments of the middle cerebral arteries, with a normal M1 bifurcation. Normal left M1 and M2 segments of the middle cerebral arteries, with a normal M1 bifurcation. Normal right posterior communicating artery (PCOM). Normal left posterior communicating artery (PCOM). Normal bilateral vertebral arteries. Normal basilar artery with a normal basilar bifurcation. The visualized bilateral superior cerebellar (SCA) arteries are normal. Normal bilateral P1, P2 and visualized P3 segments of the posterior cerebral arteries. There is no demonstrated aneurysm of the [place] of [place]. There is no demonstrated abnormality of the visualized brain. AORTIC ARCH: There is atherosclerotic calcific plaque formation of the aortic arch and great vessels arising from the aortic arch, without a hemodynamically significant stenosis. There is a normal origin of the brachiocephalic, left common carotid, and left subclavian arteries. RIGHT CAROTID ARTERIES: Normal right common carotid artery (CCA). Normal right common carotid bulb. Normal origin of the right internal carotid (ICA) artery without a hemodynamically significant stenosis. Normal visualized cervical portion of the right internal carotid artery. Normal origin of the right external carotid artery (ECA). LEFT CAROTID ARTERIES: Normal left common carotid artery (CCA). Normal left common carotid bulb. There is mild atherosclerotic plaque formation of the origin of the left internal carotid artery with less than 50% cross sectional diameter stenosis. Normal visualized cervical portion of the left internal carotid artery. Normal origin of the left external carotid artery (ECA). VERTEBRAL ARTERIES: Normal bilateral vertebral arteries. CT/CTA Head AND Neck W/ Contrast IMPRESSION: Atherosclerotic plaque formation at the origin of the left internal carotid artery causing less than 50% luminal stenosis. N.B. : The above Results were Read Back by Fitz Moody MD to marixa jeffrey and understanding confirmed on 03/01/2021 11:14:16 (ET). Electronically Signed: Fitz Moody MD at 11:15 EDT , Service support ,
[2021-03-01 11:04] LABS: Absolute Lymphocyte Count 1.27 X10^3/uL (0.83-4.51); Basophil# 0.04 X10^3/uL; Basophil% 0.6 % (0-1); Eosinophil# 0.24 X10^3/uL; Eosinophils% 3.3 % (0-5); Hematocrit 44.2 % (40-54); Hemoglobin 14.7 g/dL (13.0-16.5); Lymphocyte # 1.27 X10^3/ul (0.83-4.51); Lymphocyte % 17.6 % (19-41); Mean Corp Hgb Conc 33.3 g/dL (32-36); Mean Corpuscular Hgb 31.3 pg (27.0-32.0); Mean Platelet Vol. 10.2 fl (6.2-12.0); Monocyte% 8.3 % (0-10); NRBC Flagged by Analyzer 0 % (0-5); Neutrophil # 5.01 X10^3/uL (2.7-7.7); Neutrophil % 69.4 % (47-70); Platelet Count 214 K/mm3 (150-450); RBC Distribution Width CV 12.6 % (11.6-14.6); RBC Distribution Width SD 43.5 fl (35.1-43.9); White Blood Count 7.2 K/mm3 (4.4-11.0)
[2021-03-01 11:21] LABS: International Normalized Ratio 1.1; Prothrombin Time (Protime)PT. 13.3 SECONDS (11.7-14.9)
[2021-03-01 11:22] LABS: Partial Thromboplast Time 28.3 Seconds (24.1-36.2)
[2021-03-01 11:22] LABS: Anion Gap 5 (5-15); BUN 16 mg/dL (7-18); BUN/Creat Ratio 12.6 RATIO (10-20); Chloride 108 mmol/L (98-107); Creatinine, Serum 1.27 mg/dL (0.70-1.30); EST Glomerular Filtration Rate 58 mL/min (>60); Est Glom Filt Rate - Afr Amer 70 mL/min (>60); Estimated Creatinine Clearance 50.23 ml/min; Glucose 123 mg/dL (74-106); Potassium 4.1 mmol/L (3.5-5.1); Sodium Level 139 mmol/L (136-145); Troponin-I HS 7 pg/mL (3.0-78.0)
--- NOTE | 2021-03-01 11:23 | RAD_ITS ---
STUDY: X-RAY CHEST REASON FOR EXAM: Male, 80 years old. Neuro deficit, acute, stroke suspected TECHNIQUE: Single AP portable view of the chest. COMPARISON: None. FINDINGS: EKG electrodes are seen. Minimal increased linear markings at the left lung base suggests a mild left basilar atelectasis. There is no demonstrated pleural abnormality. Normal size heart. Normal mediastinum and ramona. Normal visualized pulmonary arteries. There is atherosclerotic tortuosity of the aortic arch and descending thoracic aorta. There are degenerative changes of the visualized thoracic spine. Normal visualized ribs, clavicles, and shoulders. There is no demonstrated abnormality of the visualized soft tissue structures of the upper abdomen. RAD/Chest 1 View IMPRESSION: Findings suggestive of a mild degree of left basilar atelectasis. Electronically Signed: Fitz Moody MD at 11:39 EDT , Service support ,
--- NOTE | 2021-03-01 11:51 | CM.ED ---
HASEEB Note Referral Source: Case Find Referral Reason: Stroke Alert HASEEB met with patient's , Nieves. SW provided emotional support. She said that her children live out of town but she has texted them. HASEEB then went back to check on patient's , Nieves, and she reported she was doing ok with no concerns or issues. HASEEB will remain available. Plan: Emotional Support to Zeina Ramos MAURISIO NAIR
--- NOTE | 2021-03-01 12:04 | HP.PCM.HOS_ITS ---
HPI - General General Date of Admission: 03/01/21 HPI Narrative LORETTA GUO, is a 80 M who was admitted via the ED on 03/01/2021 with a complaint of stroke symptoms. He had left arm and left leg weakness at ~ 10am today, with associated confusion. Patient however has chronic dementia. He also had some expressive aphasia, and per ED doctor, his left leg and arm weakness had resolved. His aphasia also improved, though at the time I reviewed him, patient still has some expressive aphasia and difficulty getting words out. His helps with the history and she denied that he had had any headache, blurred vision, chest pain, palpitations or dizziness, nausea vomiting or any weakness in any other extremities. Review of systems otherwise negative. CT of the brain was negative and NIH was initially 3, but came down to 2. Vitals were BP of 109/71, NE of 64, RR of 12 and oxygen sats of 98% on room air. CBC and BMP were unremarkable. He is being admitted to be managed for TIA. [facility] Medical History (Updated 03/01/21 @ 11:[address] Albert Jeffrey MD) Alzheimer disease CVA (cerebral vascular accident) (~2013) Mixed hyperlipidemia Near syncope (02/14/17) Osteoarthritis Home Medications nortriptyline 25 mg PO QHS 02/29/16 [History Last Taken 02/28/21 21:00] memantine 28 mg PO DAILY 02/14/17 [History Last Taken 03/01/21 09:00] ipratropium bromide 42 mcg (0.06 %) nasal spray 2 spray INTRANASAL BID PRN PRN #15 ml 04/26/18 [Rx Last Taken Unknown] buspirone 5 mg tablet 5 mg PO TID tab 04/30/19 [History Last Taken 03/01/21 09:00] citalopram 20 mg tablet 20 mg PO DAILY 04/30/19 [History Last Taken 03/01/21 09:00] multivitamin 1 cap PO DAILY 04/30/19 [History Last Taken 03/01/21 09:00] donepezil 10 mg tablet 10 mg PO DAILY 05/16/19 [History Last Taken 02/28/21 17:00] calcium citrate [Citracal] 200 mg PO DAILY 03/01/21 [History Last Taken 02/28/21 21:00] clonazepam 0.5 - 1.5 mg PO DAILY PRN 03/01/21 [History Last Taken 02/28/21 18:00] loratadine 10 mg PO DAILY 03/01/21 [History Last Taken 03/01/21 09:00] quetiapine 25 mg PO QHS 03/01/21 [History Last Taken 02/28/21 21:00] Allergy/AdvReac Type Severity Reaction Status Date / Time No Known Allergies Allergy Verified 06/17/20 13:06 Surgical History History of knee replacement Social History (Updated 06/17/20 @ 13:39 by Zoe Paredes PA, PA) Smoking Status: Former smoker alcohol intake: never substance use type: does not use what type of physical activity do you participate in: aerobics and weight t raining frequency: 3-4 times per week ROS Constitutional Constitutional: Denies anorexia, chills, fatigue, fever(s), malaise or weakness Eyes Eyes: Denies change in vision ENT HEENT: Denies abnormal hearing, dysphagia, hearing loss, nasal congestion or nasal discharge Cardiovascular Cardiovascular: Denies chest pain, dyspnea on exertion, edema, lightheadedness, orthopnea, palpitations, paroxysmal nocturnal dyspnea or rapid heart rate Respiratory/Chest Respiratory/Chest: Denies cough, dyspnea, productive cough, shortness of breath at rest or shortness of breath with exertion Gastrointestinal Gastrointestinal: Denies abdominal pain, diarrhea, hematochezia, loose stools, nausea or vomiting Genitourinary Genitourinary: Denies burning urination, dysuria or urinary frequency Musculoskeletal Musculoskeletal: Denies arthralgias Neurologic Neurologic: Reports abnormal speech, confusion and focal weakness; Denies abnormal gait, dizziness or headache(s) Psychiatric Psychiatric: Denies anxiety or depression Endocrine Endocrinology: Reports change in body appearance Hematologic/Lymphatic Hematologic/Lymphatic: Denies anemia Vital Signs Vital Signs Vital Signs: 03/01/21 10:46 03/01/21 10:51 03/01/21 10:53 Temperature 97.9 F Temperature Source Temporal Pulse Rate 70 70 70 Respiratory Rate 18 18 Blood Pressure 110/70 110/70 110/70 Blood Pressure Mean 83 83 83 Pulse Ox Oxygen Delivery Method Room Air Room Air Oxygen Flow Rate (L/min) 03/01/21 11:02 03/01/21 11:04 03/01/21 11:20 Temperature Temperature Source Pulse Rate 79 60 Respiratory Rate 21 H 13 Blood Pressure 107/75 Blood Pressure Mean 85 Pulse Ox 97 98 Oxygen Delivery Method Room Air Room Air Room Air Oxygen Flow Rate (L/min) 97 03/01/21 11:30 Temperature Temperature Source Pulse Rate 64 Respiratory Rate 12 Blood Pressure 109/71 Blood Pressure Mean 83 Pulse Ox 98 Oxygen Delivery Method Room Air Oxygen Flow Rate (L/min) Weight Weight: 184 lb 1.376 oz Body Mass Index (BMI) 25.7 Physical Exam Const alert, no apparent distress, healthy appearing and well nourished Orientation / Consciousness: lethargic HEENT normocephalic, hearing grossly normal bilaterally and moist oral mucous membranes Mouth: oral and palatal mucosa normal Eyes PERRL, EOMs intact bilaterally and conjunctivae normal Neck no lymphadenopathy and supple Resp normal respiratory effort, no retractions, no use of accessory muscles and clear to auscultation bilaterally Cardio regular rate, regular rhythm, S1 normal heart sound, S2 normal heart sound and no murmurs GI normal to inspection, nondistended, normoactive bowel sounds, soft to palpation, non-tender and non-distended Extremity normal to inspection, full ROM and no clubbing, cyanosis or edema Peripheral Pulses: Yes pulses 2+ throughout Skin no rashes or lesions noted Neuro CN's II-XII intact bilaterally and moves all extremities Neuro Narrative: moves all extremities, power in all extremities is 5/5, has some expressive aphasia. NIHSS is 2 (expressive aphasia and mild confusion) Sensorium / Orientation: awake and alert Psych affect normal Results Lab / Micro Data Result Diagrams: 03/01/21 10:30 03/01/21 10:30 Labs: Laboratory Results - last 24 hr 03/01/21 10:30: WBC 7.2, RBC 4.70, Hgb 14.7, Hct 44.2, MCV 94.0, MCH 31.3, MCHC 33.3, RDW Std Deviation 43.5, RDW Coeff of Nya 12.6, Plt Count 214, MPV 10.2, Immature Gran % (Auto) 0.800, Neut % (Auto) 69.4, Lymph % (Auto) 17.6 L, [place] % (Auto) 8.3, Eos % (Auto) 3.3, Baso % (Auto) 0.6, Absolute Neuts (auto) 5.0, Absolute Lymphs (auto) 1.27, Nucleated RBC % 0 03/01/21 10:30: Sodium 139, Potassium 4.1, Chloride 108 H, Carbon Dioxide 26.0, Anion Gap 5, BUN 16, Creatinine 1.27, Estim Creat Clear Calc 50.23, Est GFR (MDRD) Af Amer 70, Est GFR (MDRD) Non-Af 58 L, BUN/Creatinine Ratio 12.6, Glucose 123 H, Calcium 9.0, Troponin I High Sens 7 03/01/21 11:05: PT 13.3, INR 1.1, APTT 28.[address] 03/01/21 10:50 IMPRESSION: Chronic involutional changes of the brain. N.B. : The above Results were Read Back by Fitz Moody MD to Dr Yeny MD, and understanding confirmed on 03/01/2021 11:06:10 (ET). Electronically Signed: Fitz Moody MD at 11:07 EDT , Service support , ADDENDUM: 03/01/21 1114 IMPRESSION: Chronic involutional changes of the brain. N.B. : The above Results were Read Back by Fitz Moody MD to Dr Yeny MD, and understanding confirmed on 03/01/2021 11:06:10 (ET). Electronically Signed: Fitz Moody MD at 11:07 EDT , Service support , Head/Neck CTA 03/01/21 10:51 IMPRESSION: Atherosclerotic plaque formation at the origin of the left internal carotid artery causing less than 50% luminal stenosis. N.B. : The above Results were Read Back by Fitz Moody MD to albert jeffrey and understanding confirmed on 03/01/2021 11:14:16 (ET). Electronically Signed: Fitz Moody MD at 11:15 EDT , Service support , ADDENDUM: 03/01/21 1122 IMPRESSION: Atherosclerotic plaque formation at the origin of the left internal carotid artery causing less than 50% luminal stenosis. N.B. : The above Results were Read Back by Fitz Moody MD to albert jeffrey and understanding confirmed on 03/01/2021 11:14:16 (ET). Electronically Signed: Fitz Moody MD at 11:15 EDT , Service support , Chest X-Ray 03/01/21 11:23 IMPRESSION: Findings suggestive of a mild degree of left basilar atelectasis. Electronically Signed: Fitz Moody MD at 11:39 EDT , Service support , Assessment & Plan Assessment/Plan (1) Brain TIA: PLAN: #TIA * admit to PCU with telemetry * admitted with a complaint of left upper and lower extremity weakness, which has now resolved * also had aphasia, which has now resolved. He still does have some confusion, but he does have baseline confusion. * NIHSS was 2 at time of review * CT of the brain was negative * PO aspirin 81mg daily, high intensity statin. * CTA of the head and neck showed less than 50% stenosis in the origin of the left internal carotid artery and normal bilateral vertebral arteries * order MRI of the brain. check lipid panel and A1C * PT/OT consult * fall precautions * keep NPO until he passes bedside speech evaluation * #History of Alzheimer's dementia * on donepezil and memantine * * DVT prophylaxis; SCDs Code status: DNRCCA * Patient's counseled about different types of CODE STATUS including full code, DNR CCA and DNR CCA. stated that patient had a DNR. I clarified the differences between DNR CCA and DNR CCA and said patient would want to be DNR CCA. * Total [id number] time 17 minutes. Charges/Coding Visit Charges OBSV E&M: 68419 Initial observation care L2 Procedures Hospitalists Procedures: 10599 Advncd Care Plan 30 Min
[2021-03-01 13:00] LABS: Troponin-I HS 7 pg/mL (3.0-78.0)
--- NOTE | 2021-03-01 13:09 | MRI_ITS ---
STUDY: MRI BRAIN WITHOUT CONTRAST REASON FOR EXAM: Male, 80 years old. TIA -- expressive aphasia,left arm/leg weakness TECHNIQUE: Standardized multiplanar fat and water weighted pulse sequences were obtained. COMPARISON: CT earlier today, MRI 06/23/2017 FINDINGS: There is moderate cerebral atrophy with widening of the extra-axial spaces and ventricular dilatation. There are a limited number of small white matter hyperintensities, distributed throughout the deep white matter tracts of the cerebral hemispheres, consistent with mild chronic white matter ischemic changes. There is no evidence for recent intracranial ischemia or other cause of cytotoxic edema on diffusion weighted imaging (DWI). Normal T2* images of the brain without demonstrated susceptibility artifact. There is no demonstrated hemosiderin stain. Normal bilateral basal ganglia. Normal thalami. There is no extra-axial fluid accumulation. Normal flow voids within the major intracranial circulation suggesting patency by spin echo criteria. Normal sella turcica, pituitary gland, infundibular stalk, optic chiasm and hypothalamus. Normal tectal plate and pineal gland. Normal midbrain, marcelino and medulla. Normal cerebellum. Normal basal cisterns. Normal bilateral temporal bones. Normal bilateral internal auditory canals. No demonstrated orbital abnormality, within the constraints of a routine brain study. Normal visualized paranasal sinuses. Normal calvarium and skull base. Normal visualized soft tissue structures. Normal visualized upper cervical spine. MRI/Brain without Contrast IMPRESSION: Involutional changes of the brain, as described above. No acute infarct. Electronically Signed: Leo Colorado MD at 18:02 EDT Tel , Service support ,
--- NOTE | 2021-03-01 13:09 | ECHOD_ITS ---
Reason For Study: TIA/CVA Procedure This was a 2D Doppler, Color Flow transthoracic echocardiogram. Exam performed portable in patient room. Left Ventricle Normal LV size. Left ventricular systolic function is normal. The estimated ejection fraction is 60 %. Stage 1 diastolic dysfunction. No regional wall motion abnormalities noted. Right Ventricle Normal RV size. Normal systolic function. Atria Normal left atrium. Normal right atrium. Bubble contrast study negative for right to left interatrial shunt. Mitral Valve Normal mitral valve. Tricuspid Valve Normal tricuspid valve. Aortic Valve Trisinus/trileaflet aortic valve. Pericardium/Pleural No pericardial effusion. Medication Performed a rapid injection of agitated mix of 9 cc saline and 1cc air to assess for atrial septal defect. MMode/2D Measurements & Calculations LVIDd: 4.2 cm IVSd: 1.1 cm Ao root diam: 3.4 cm LVIDs: 2.7 cm LVPWd: 1.1 cm RVDd: 3.4 cm FS: 36.6 % LAV(MOD-bp): 29.2 ml LA A4 area: 13.2 cm2 LA dimension(2D): 3.7 cm LAV(MOD-bp) Indexed: 14.3 ml/m2 LAV(MOD-sp2): 25.7 ml LAV(MOD-sp4): 29.8 ml RA A4 area: 10.1 cm2 Doppler Measurements & Calculations MV E max marcelo: 60.0 cm/sec Lat Peak E' Marcelo: 9.0 cm/sec Med Peak E' Marcelo: 7.4 cm/sec MV A max marcelo: 78.1 cm/sec E/E' lat: 6.6 E/E' med: 8.1 MV E/A: 0.77 Ao V2 max: 106.1 cm/sec LV V1 max: 80.0 cm/sec PA V2 max: 82.5 cm/sec Ao max P.5 mmHg LV V1 max P.6 mmHg Ao V2 mean: 77.6 cm/sec Ao mean P.6 mmHg Ao V2 VTI: 23.4 cm ECHO/Echo Complete Interpretation Summary Normal LV size. Left ventricular systolic function is normal. The estimated ejection fraction is 60 %. Stage 1 diastolic dysfunction. Bubble contrast study negative for right to left interatrial shunt. Ordering Physician: Cindy Hidalgo Referring Physician: Navi Crews Chi Performed By: Kalyani Hidalgo, SYMONE, RVT
--- NOTE | 2021-03-01 13:34 | PCS.PANDOC ---
PANDEMIC DOCUMENTATION INITIATED: Date: 02/22/2021 Time: 190
[2021-03-01] MEDS: busPIRone 5 MG Tablet PO ×2 (15:58→20:44)
[2021-03-01] MEDS: QUEtiapine 25 MG Tablet PO (20:44)
[2021-03-01] MEDS: Nortriptyline 25 MG Capsule PO (20:44)
--- NOTE | 2021-03-01 21:00 | NURSING ---
Pt requested to get vitals when patient wakes up. To only get them at 03:00 when due if he is already awake.
[2021-03-02 03:00] VITALS: PULSE 85
[2021-03-02 05:30] VITALS: BP 136/88; PULSE 77; RESP 18; TEMP 36; O2SAT 97
[2021-03-02 05:55] LABS: Absolute Lymphocyte Count 1.65 X10^3/uL (0.83-4.51); Absolute Neutrophil Count 5.1 X10^3/uL (2.0-7.7); Basophil# 0.04 X10^3/uL; Basophil% 0.5 % (0-1); Eosinophil# 0.33 X10^3/uL; Eosinophils% 4.2 % (0-5); Hematocrit 44.7 % (40-54); Hemoglobin 14.9 g/dL (13.0-16.5); Lymphocyte # 1.65 X10^3/ul (0.83-4.51); Lymphocyte % 21.2 % (19-41); Mean Corp Hgb Conc 33.3 g/dL (32-36); Mean Corpuscular Hgb 31.7 pg (27.0-32.0); Mean Corpuscular Volume 95.1 fL (80-94); Monocyte# 0.61 X10^3/uL; Monocyte% 7.8 % (0-10); NRBC Flagged by Analyzer 0 % (0-5); Neutrophil % 65.4 % (47-70); Platelet Count 194 K/mm3 (150-450); RBC Distribution Width CV 12.6 % (11.6-14.6); RBC Distribution Width SD 44.4 fl (35.1-43.9); White Blood Count 7.8 K/mm3 (4.4-11.0)
--- NOTE | 2021-03-02 05:58 | NURSING ---
Per , wait to give Am Buspar until breakfast with the other meds.
[2021-03-02 06:28] LABS: Anion Gap 5 (5-15); BUN 15 mg/dL (7-18); BUN/Creat Ratio 13.2 RATIO (10-20); Calcium,Total 8.5 mg/dL (8.5-10.1); Chloride 105 mmol/L (98-107); Cholesterol 179 mg/dL (200); Creatinine, Serum 1.14 mg/dL (0.70-1.30); EST Glomerular Filtration Rate 66 mL/min (>60); Est Glom Filt Rate - Afr Amer 80 mL/min (>60); Estimated Creatinine Clearance 55.96 ml/min; Glucose 91 mg/dL (74-106); High Density Lipoprotein 34 mg/dL; Potassium 4.1 mmol/L (3.5-5.1); Sodium Level 139 mmol/L (136-145); Triglycerides 261 mg/dL; Very Low Density Lipoprotein 52 mg/dL (5-40)
[2021-03-02 07:48] LABS: Hemoglobin A1c 5.1 % (3.8-5.6)
[2021-03-02 08:02] VITALS: O2SAT 97
[2021-03-02 08:44] VITALS: BP 121/74; PULSE 78; RESP 16; TEMP 36.6; O2SAT 93
[2021-03-02] MEDS: Aspirin 81 MG TAB.CHEW PO (08:53)
[2021-03-02] MEDS: Multivitamins,Therapeutic Tablet 1 TABLET PO (08:53)
[2021-03-02] MEDS: busPIRone 5 MG Tablet PO (08:53)
[2021-03-02] MEDS: Memantine Hydrochloride 10 MG Tablet PO (08:54)
[2021-03-02] MEDS: Citalopram 20 MG Tablet PO (08:54)
--- NOTE | 2021-03-02 08:56 | TELEMED_ITS ---
[facility] Tele[facility] has confirmed receipt of a request for visit. This document confirms receipt of the order initiating the consult. To find the results of the consultation, please view the patient's reports for the scanned Telemed Consult.
--- NOTE | 2021-03-02 11:05 | CASEMGMT ---
SW did not complete a PHQ 9 with patient as he has Dementia and is confused. Bree Walton [employer] ATTENDANT APRIL
--- NOTE | 2021-03-02 11:25 | DS.PCM_ITS ---
Providers Date of Admission: 03/01/21 Primary Care Physician: Dr. Navi Crews MD Reason For Visit: TIA Diagnosis Discharge Diagnosis (1) Brain TIA: Status: Acute Code(s): G45.9 - Transient cerebral ischemic attack, unspecified Medications at Discharge Home Medications nortriptyline 25 mg PO QHS 02/29/16 memantine 28 mg PO DAILY 02/14/17 ipratropium bromide 42 mcg (0.06 %) nasal spray 2 spray INTRANASAL BID PRN PRN #15 ml 04/26/18 buspirone 5 mg tablet 5 mg PO TID tab 04/30/19 citalopram 20 mg tablet 20 mg PO DAILY 04/30/19 multivitamin 1 cap PO DAILY 04/30/19 donepezil 10 mg tablet 10 mg PO DAILY 05/16/19 calcium citrate 200 mg PO DAILY 03/01/21 clonazepam 0.5 - 1.5 mg PO DAILY PRN 03/01/21 loratadine 10 mg PO DAILY 03/01/21 quetiapine 25 mg PO QHS 03/01/21 aspirin 81 mg PO DAILY #30 tab 03/02/21 atorvastatin 40 mg PO QHS #30 tab 03/02/21 Hospital Course Operations None Procedures 2-D Echocardiogram Summary of Care Provided Minutes Spent on Discharge: 40 Hospital Course: LORETTA GUO, is a 80 M who was admitted via the ED on 03/01/2021 with a complaint of stroke symptoms. He had left arm and left leg weakness at ~ 10am on the day of admission, with associated confusion. Patient however has chronic dementia. He also had some expressive aphasia, and per ED doctor, his left leg and arm weakness had resolved. His aphasia also improved, though at the time I reviewed him, patient still has some expressive aphasia and difficulty getting words out. His helps with the history and she denied that he had had any headache, blurred vision, chest pain, palpitations or dizziness, nausea vomiting or any weakness in any other extremities. Review of systems otherwise negative. CT of the brain was negative and NIH was initially 3, but came down to 2. Vitals were BP of 109/71, NE of 64, RR of 12 and oxygen sats of 98% on room air. CBC and BMP were unremarkable. He was admitted to be managed for TIA. He had an MRI which was negative for stroke. 2D echo done showed EF of 60%, with stage 1 diastolic dysfunction,a nd no regional wall motion abnormalities noted, with negative bubble contrast study. Neurology was c onsulted, and was concerned about mild hypotension on admission, and to have outpatient neurology follow up. He was discharged on aspirin and high intensity statin. He is to follow up with his PCP in 1-2 weeks. Patient seen and examined. Prior to dischrge. He has no complaints. was by his bedside. He was much more alert and oriented today. Review of systems was otherwise negative. Labs and vitals reviewed. Home medications reviewed and reconciled. Physical Exam Const alert, oriented x3, no apparent distress and well nourished General Appearance: cooperative and comfortable Orientation / Consciousness: awake Exam Limitations: no limitations HEENT normocephalic, head/scalp atraumatic, hearing grossly normal bilaterally and moist oral mucous membranes Eyes PERRL, EOMs intact bilaterally and conjunctivae normal Neck no lymphadenopathy and supple Resp normal respiratory effort, no retractions, no use of accessory muscles and clear to auscultation bilaterally Cardio regular rate, regular rhythm, S1 normal heart sound, S2 normal heart sound and no murmurs GI normal to inspection, nondistended, normoactive bowel sounds, soft to palpation, non-tender and non-distended Extremity normal to inspection, full ROM and no clubbing, cyanosis or edema Skin no rashes or lesions noted Neuro CN's II-XII intact bilaterally and moves all extremities Neuro Narrative: moves all extremities, power in all extremities is 5/5, expressive aphasia has resolved. NIHSS is 0. Sensorium / Orientation: awake and alert Psych affect normal Weight / BMI Weight Weight: 182 lb 15.739 oz Body Mass Index (BMI) 25.4 ABG / Lab / Microbiology Data Result Diagrams: 03/02/21 05:24 03/02/21 05:24 Laboratory: Laboratory Results - last 24 hr 03/01/21 12:40: Troponin I High Sens 7 03/02/21 05:24: WBC 7.8, RBC 4.70, Hgb 14.9, Hct 44.7, MCV 95.1 H, MCH 31.7, MCHC 33.3, RDW Std Deviation 44.4 H, RDW Coeff of Nya 12.6, Plt Count 194, MPV 10.0, Immature Gran % (Auto) 0.900, Neut % (Auto) 65.4, Lymph % (Auto) 21.2, [place] % (Auto) 7.8, Eos % (Auto) 4.2, Baso % (Auto) 0.5, Absolute Neuts (auto) 5.1, Absolute Lymphs (auto) 1.65, Nucleated RBC % 0 03/02/21 05:24: Sodium 139, Potassium 4.1, Chloride 105, Carbon Dioxide 29.0, Anion Gap 5, BUN 15, Creatinine 1.14, Estim Creat Clear Calc 55.96, Est GFR (MDRD) Af Amer 80, Est GFR (MDRD) Non-Af 66, BUN/Creatinine Ratio 13.2, Glucose 91, Calcium 8.5, Triglycerides 261 H, Cholesterol 179, LDL Cholesterol 93, VLDL Cholesterol 52 H, HDL Cholesterol 34 L 03/02/21 05:24: Hemoglobin A1c 5.1 Microbiology: Microbiology 03/01/21 12:24 Mucosa - Nose SARS-CoV-2 Antigen (Rapid) - Final Radiography Diagnostic Testing: Radiology Impression Chest X-Ray 03/01/21 11:23 IMPRESSION: Findings suggestive of a mild degree of left basilar atelectasis. Electronically Signed: Fitz Moody MD at 11:39 EDT , Service support , Brain MRI 03/01/21 13:09 IMPRESSION: Involutional changes of the brain, as described above. No acute infarct. Electronically Signed: Leo Colorado MD at 18:02 EDT Tel , Service support , Echocardiogram 03/01/21 13:09 Interpretation Summary Normal LV size. Left ventricular systolic function is normal. The estimated ejection fraction is 60 %. Stage 1 diastolic dysfunction. Bubble contrast study negative for right to left interatrial shunt. Ordering Physician: Cindy Hidalgo Referring Physician: Navi Crews Chi Performed By: Kalyani Hidalgo RDCS, RVT D/C Instructions Discharge Diet: Low fat / Low cholesterol Discharge Activity: Return to Normal Activity Weight Bearing Status: Weight bearing as tolerated Call your doctor if you observe: Fever of 101 or Higher, Shortness of breath, Dizziness, Fainting spells, Chest pain and Increased palpitations (irregular heartbeat) Meaningful Use Info Meaningful Use Diagnoses (Choose all that apply): None applicable Discharge Plan Admission Admit Date/Time: 03/01/21 12:20 Primary Reason for Your Visit: TIA Attending Provider: Cindy Hidalgo Primary Care Provider: Navi Crews Chi Instructions Patient Instructions: Causes of Syncope, Cholesterol Measurement Discharge Orders/Prescriptions Prescriptions: New aspirin 81 mg tablet,delayed release (DR/EC) 81 mg PO DAILY Qty: 30 RF: 1 atorvastatin 40 mg tablet 40 mg PO QHS Qty: 30 RF: 1 Continued ipratropium bromide 42 mcg (0.06 %) spray,non-aerosol 2 spray INTRANASAL BID PRN PRN (Reason: Allergies) Qty: 15 RF: 3 citalopram 20 mg tablet 20 mg PO DAILY RF: 0 buspirone 5 mg tablet 5 mg PO TID RF: 0 multivitamin capsule capsule 1 cap PO DAILY RF: 0 nortriptyline 25 MG capsule 25 mg PO QHS RF: 0 memantine 28 MG capsule,sprinkle,ER 24hr 28 mg PO DAILY RF: 0 quetiapine 25 mg tablet 25 mg PO QHS RF: 0 clonazepam 0.5 mg tablet,disintegrating 0.5 - 1.5 mg PO DAILY PRN (Reason: Agitation) RF: 0 loratadine 10 mg Tablet 10 mg PO DAILY RF: 0 calcium citrate 200 mg (950 mg) Tablet 200 mg PO DAILY RF: 0 donepezil 10 mg tablet 10 mg PO DAILY RF: 0 Referrals / Follow Up: Vishnu Rosas MD [STAFF PHYSICIAN] - Within 2 Weeks Navi Crews Chi, MD [Primary Care Provider] - In 1 Week Disposition Disposition (needs filled in before D/C Order can be placed): Home, Self Care Charges/Coding Visit Charges Inpatient E&M: 14746 Disch Hosp
--- NOTE | 2021-03-02 11:48 | CASEMGMT ---
This RN CM to room and pt/ decline need for any further therapy at this time. aware to call PCP if they change their mind once home. Pt/ voices no further questions/concerns/needs. SStaten RN CM
[2021-03-02 12:01] VITALS: BP 100/77; BP 113/63; BP 132/58; PULSE 66; PULSE 71
[2021-03-02 12:11] VITALS: BMI 25.4
--- NOTE | 2021-03-02 13:51 | PHA.DC.MR ---
Pharmacy Service has performed discharge medication reconciliation for this patient. The patient's discharge medication list was reviewed for discrepancies and discrepancies were resolved. Home Medications nortriptyline 25 mg PO QHS 02/29/16 memantine 28 mg PO DAILY 02/14/17 ipratropium bromide 42 mcg (0.06 %) nasal spray 2 spray INTRANASAL BID PRN PRN #15 ml 04/26/18 buspirone 5 mg tablet 5 mg PO TID tab 04/30/19 citalopram 20 mg tablet 20 mg PO DAILY 04/30/19 multivitamin 1 cap PO DAILY 04/30/19 donepezil 10 mg tablet 10 mg PO DAILY 05/16/19 calcium citrate 200 mg PO DAILY 03/01/21 clonazepam 0.5 - 1.5 mg PO DAILY PRN 03/01/21 loratadine 10 mg PO DAILY 03/01/21 quetiapine 25 mg PO QHS 03/01/21 aspirin 81 mg PO DAILY #30 tab 03/02/21 atorvastatin 40 mg PO QHS #30 tab 03/02/21
== END 2021-03-02 11:44 | disposition home or self-care (01) ==
LOC: ED 11:57 → PCU 12:56
PROVIDERS: Admitting Provider Student in an Organized Health Care Education/Training Program; Emergency Provider Emergency Medicine; PCP Family Medicine Geriatric Medicine; Visit Provider Student in an Organized Health Care Education/Training Program
DX: G45.9 Transient cerebral ischemic attack, unspecified (principal); R53.1 Weakness; G30.9 Alzheimer's disease, unspecified; F02.80 Dementia in other diseases classified elsewhere, unspecified severity, without behavioral disturbance, psychotic disturbance, mood disturbance, and anxiety; E78.2 Mixed hyperlipidemia; M19.90 Unspecified osteoarthritis, unspecified site; Z79.899 Other long term (current) drug therapy; R29.703 NIHSS score 3; Z87.891 Personal history of nicotine dependence
CPT/HCPCS: 36415; 70450; 70496; 70498; 70551; 71045; 80048; 80061; 83036; 84484; 85025; 85610; 85730; 87426; 93005; 93306; 99218; 99285; Q9967; A4216; G0378

== ENCOUNTER → 2021-03-04 15:19 | Outpatient (CLI) | payer MEDICARE, OTHER, SELFPAY ==
[2021-03-04 16:45] LABS: Vitamin D,25 Hydroxy 30.1 ng/mL
[2021-03-04 16:55] LABS: ALB/GLOB Ratio 1.2 RATIO (0.9-2.4); AST(SGOT) 22 U/L (15-37); Alanine Aminotransfer ALT/SGPT 59 U/L (16-61); Albumin, Serum 3.5 g/dL (3.2-5.0); Alkaline Phosphatase 87 U/L (45-117); Anion Gap 6 (5-15); BUN 18 mg/dL (7-18); BUN/Creat Ratio 14.5 RATIO (10-20); Calcium,Total 8.4 mg/dL (8.5-10.1); Chloride 105 mmol/L (98-107); Creatinine, Serum 1.24 mg/dL (0.70-1.30); EST Glomerular Filtration Rate 60 mL/min (>60); Est Glom Filt Rate - Afr Amer 72 mL/min (>60); Globulin 2.9 g/dL (2.2-4.2); Glucose 88 mg/dL (74-106); Potassium 3.9 mmol/L (3.5-5.1); Protein, Total 6.4 g/dL (6.4-8.2); Sodium Level 138 mmol/L (136-145); Thyroid Stim Hormone (TSH) 1.85 uIU/mL (0.358-3.74)
[2021-03-04 17:01] LABS: Absolute Lymphocyte Count 1.62 X10^3/uL (0.83-4.51); Absolute Neutrophil Count 4.6 X10^3/uL (2.0-7.7); Basophil# 0.03 X10^3/uL; Basophil% 0.4 % (0-1); Eosinophil# 0.25 X10^3/uL; Eosinophils% 3.5 % (0-5); Hematocrit 44.3 % (40-54); Hemoglobin 14.8 g/dL (13.0-16.5); Lymphocyte # 1.62 X10^3/ul (0.83-4.51); Lymphocyte % 22.4 % (19-41); Mean Corp Hgb Conc 33.4 g/dL (32-36); Mean Corpuscular Hgb 31.4 pg (27.0-32.0); Mean Corpuscular Volume 93.9 fL (80-94); Mean Platelet Vol. 10.7 fl (6.2-12.0); Monocyte# 0.66 X10^3/uL; Monocyte% 9.1 % (0-10); NRBC Flagged by Analyzer 0 % (0-5); Neutrophil % 63.8 % (47-70); Platelet Count 235 K/mm3 (150-450); RBC Distribution Width CV 12.6 % (11.6-14.6); RBC Distribution Width SD 43.4 fl (35.1-43.9); Red Blood Count 4.72 M/mm3 (4.6-6.2); White Blood Count 7.2 K/mm3 (4.4-11.0)
== END ==
PROVIDERS: PCP Family Medicine Geriatric Medicine; Visit Provider Family Medicine Geriatric Medicine
DX: E55.9 Vitamin D deficiency, unspecified (principal); R53.83 Other fatigue
CPT/HCPCS: 36415; 80053; 82306; 84443; 85025

== ENCOUNTER → 2021-03-11 15:25 | Outpatient (CLI) | payer MEDICARE, OTHER, SELFPAY | PROVIDERS: PCP Family Medicine Geriatric Medicine; Visit Provider Internal Medicine | DX: R05 Cough (principal) | CPT/HCPCS: 87635; U0005; U0003 ==

== ENCOUNTER → 2021-04-06 10:26 | Outpatient (CLI) | payer MEDICARE, OTHER, SELFPAY ==
[2021-04-06 12:39] LABS: Vitamin B12 424 pg/mL (211-911)
[2021-04-11 16:04] LABS: Vitamin B1, Thiamine 152.1 nmol/L (66.5-200.0)
== END ==
PROVIDERS: PCP Family Medicine Geriatric Medicine; Referring Provider Psychiatry & Neurology Neurology; Visit Provider Psychiatry & Neurology Neurology
DX: G30.9 Alzheimer's disease, unspecified (principal); F02.80 Dementia in other diseases classified elsewhere, unspecified severity, without behavioral disturbance, psychotic disturbance, mood disturbance, and anxiety
CPT/HCPCS: 36415; 82607; 82746; 84425

== ENCOUNTER → 2021-06-08 15:10 | Outpatient (CLI) | payer MEDICARE, OTHER, SELFPAY ==
[2021-06-08 15:30] LABS: Absolute Lymphocyte Count 1.57 X10^3/uL (0.83-4.51); Absolute Neutrophil Count 5.4 X10^3/uL (2.0-7.7); Basophil# 0.03 X10^3/uL; Basophil% 0.4 % (0-1); Eosinophil# 0.36 X10^3/uL; Eosinophils% 4.4 % (0-5); Hematocrit 42.6 % (40-54); Lymphocyte # 1.57 X10^3/ul (0.83-4.51); Lymphocyte % 19.2 % (19-41); Mean Corp Hgb Conc 32.9 g/dL (32-36); Mean Corpuscular Hgb 31.3 pg (27.0-32.0); Mean Corpuscular Volume 95.1 fL (80-94); Monocyte# 0.75 X10^3/uL; Monocyte% 9.2 % (0-10); NRBC Flagged by Analyzer 0 % (0-5); Neutrophil # 5.41 X10^3/uL (2.7-7.7); Neutrophil % 66.3 % (47-70); Platelet Count 227 K/mm3 (150-450); RBC Distribution Width CV 13.3 % (11.6-14.6); RBC Distribution Width SD 46.9 fl (35.1-43.9); Red Blood Count 4.48 M/mm3 (4.6-6.2); White Blood Count 8.2 K/mm3 (4.4-11.0)
[2021-06-08 16:06] LABS: Vitamin D,25 Hydroxy 27.7 ng/mL
[2021-06-08 16:34] LABS: ALB/GLOB Ratio 0.9 RATIO (0.9-2.4); AST(SGOT) 75 U/L (15-37); Alanine Aminotransfer ALT/SGPT 136 U/L (16-61); Albumin, Serum 3.2 g/dL (3.2-5.0); Alkaline Phosphatase 185 U/L (45-117); Anion Gap 5 (5-15); BUN 21 mg/dL (7-18); BUN/Creat Ratio 18.1 RATIO (10-20); Calcium,Total 8.5 mg/dL (8.5-10.1); Chloride 108 mmol/L (98-107); Creatinine, Serum 1.16 mg/dL (0.70-1.30); EST Glomerular Filtration Rate 64 mL/min (>60); Est Glom Filt Rate - Afr Amer 78 mL/min (>60); Globulin 3.7 g/dL (2.2-4.2); Glucose 78 mg/dL (74-106); Potassium 3.9 mmol/L (3.5-5.1); Protein, Total 6.9 g/dL (6.4-8.2); Sodium Level 141 mmol/L (136-145); Thyroid Stim Hormone (TSH) 1.39 uIU/mL (0.358-3.74)
== END ==
PROVIDERS: PCP Family Medicine Geriatric Medicine; Visit Provider Family Medicine Geriatric Medicine
DX: E55.9 Vitamin D deficiency, unspecified (principal); R53.83 Other fatigue
CPT/HCPCS: 36415; 80053; 82306; 84443; 85025

== ENCOUNTER 2021-09-17 23:57 | Emergency (ER) | payer MEDICARE, OTHER, SELFPAY ==
[2021-09-17 23:58] VITALS: BP 123/62; PULSE 54; RESP 16; TEMP 36.6; O2SAT 100; BMI 24.7
--- NOTE | 2021-09-18 00:12 | CT_ITS ---
STUDY: CT CERVICAL SPINE WITHOUT CONTRAST REASON FOR EXAM: Male, 80 years old patient with closed head injury. RADIATION DOSAGE (If Supplied By Facility): CTDIvol = ( 15.04 ) mGy, DLP = ( 346.50 ) mGycm TECHNIQUE: High resolution transaxial imaging was performed without contrast material. Sagittal and coronal images were reconstructed. Individualized dose optimization techniques were used for this CT. COMPARISON: None FINDINGS: Normal craniovertebral junction. There are degenerative changes of the anterior atlantoaxial articulation. Normal odontoid process. There is straightening of the normal cervical lordosis. The cervical and upper thoracic vertebral bodies have normal alignment. C2-3: Normal endplates. Normal disc height and morphology. Normal central canal. There is moderate narrowing of bilateral intervertebral neuroforamina with uncovertebral and facet joint hypertrophy. C3-4: There is narrowing of the disc space. There are endplate osteophytes. There is severe left-sided neural foraminal narrowing with hypertrophic left-sided uncovertebral facet arthropathy. Right foramen is moderately narrowed. There is no central acquired canal stenosis. C4-5: There is narrowing of the disc space. There is a disc bulge and osteophyte complex. There is severe right-sided neural foraminal narrowing and moderate left-sided neural foraminal narrowing with uncovertebral and facet arthropathy. There is no central acquired canal stenosis. C5-6: There is narrowing of the space with endplate osteophytes. There is moderate right-sided neural foraminal narrowing and mild left-sided neural foraminal narrowing with uncovertebral and facet arthropathy. There is no central acquired canal stenosis. C6-7: There is narrowing of the disc space. There is a disc bulge and osteophyte complex. There is mild bilateral foraminal narrowing with uncovertebral and facet arthropathy. There is no central acquired canal stenosis. C7-T1: Normal endplates. Normal disc height and morphology. Normal central canal and intervertebral neuroforamina. Lung apices appear to be clear. The thyroid appears atrophic. Paraspinal soft tissues are within normal limits. CT/Spine Cervical without Contras IMPRESSION: 1. No CT evidence of acute compression or displaced fracture. 2. 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 Electronically Signed: Wendy Stubbs MD at 1:41 EST Reading Location ID and State: [facility] / [place] , Service support ,
--- NOTE | 2021-09-18 00:12 | CT_ITS ---
STUDY: CT BRAIN WITHOUT CONTRAST REASON FOR EXAM: Male, 80 years old patient with closed head injury. RADIATION DOSAGE (If Supplied By Facility): CTDIvol = ( 44.99 ) mGy, DLP = ( 812.98 ) mGycm TECHNIQUE: Transaxial CT imaging of the brain was performed without administration of intravenous contrast material. Multiplanar reformations are submitted for interpretation. Individualized dose optimization techniques were used for this CT. COMPARISON: MRI of the brain dated 03/01/[address] of the brain dated 03/01/2021. FINDINGS: Normal soft tissue structures. Normal calvarium. There is mild cerebral atrophy with widening of the extra-axial spaces and ventricular dilatation. Multiple punctate calcifications throughout the brain may be secondary to previous infection. There are areas of decreased attenuation within the white matter tracts of the supratentorial brain, consistent with microvascular disease changes. There are small punctate calcifications of the basal ganglia which are seen in the aging brain as a normal variant. Normal brainstem. There is mild cerebellar atrophy. There is no intracranial hemorrhage. There is mild atherosclerotic calcification of the intracranial arteries. Normal visualized paranasal sinuses. CT/Brain/Head without Contrast IMPRESSION: 1. Chronic involutional changes of the brain. 2. No CT evidence of acute intracranial hemorrhage. Electronically Signed: Wendy Stubbs MD at 1:22 [facility] ,
--- NOTE | 2021-09-18 00:14 | EX.ED.GENINJ ---
HPI History of Present Illness Chief Complaint: Fall Informant: EMS Onset/Context/Timing Onset: Today Narrative Narrative: Brought in by EMS from [facility] for unwitnessed fall head injury. Patient has Alzheimer's reported A&O x3 at baseline however unclear at this time. States he was found wandering around noted abrasions to his forehead. Patient cannot recall this. He denies any symptoms currently. Paperwork present does know he is a DNR comfort care only. Medication include baby aspirin and dementia medications. [facility] Medical History Alzheimer disease CVA (cerebral vascular accident) (2013) Mixed hyperlipidemia Near syncope (02/14/17) Osteoarthritis TIA (transient ischemic attack) (02/2021) Home Medications memantine 28 mg PO DAILY 02/14/17 [History Last Taken 03/01/21 09:00] citalopram 20 mg tablet 20 mg PO DAILY 04/30/19 [History Last Taken 03/01/21 09:00] donepezil 10 mg tablet 10 mg PO DAILY 05/16/19 [History Last Taken 02/28/21 17:00] aspirin 81 mg PO DAILY #30 tab 03/02/21 [Rx Last Taken Unknown] atorvastatin 40 mg PO QHS #30 tab 03/02/21 [Rx Last Taken Unknown] lorazepam [Ativan] 0.5 mg PO BID 09/18/21 [History Last Taken Unknown] melatonin 10 mg PO QHS 09/18/21 [History Last Taken Unknown] Allergy/AdvReac Type Severity Reaction Status Date / Time benzocaine Allergy PT UNSURE Verified 09/18/21 00:05 OF REACTION Family History Mother CVA (cerebral vascular accident) Myocardial infarction Sister Colon cancer Father Lung cancer Sister Respiratory disease Surgical History History of knee replacement Social History Smoking Status: Former smoker Tobacco: How many years used: 30 how long ago did patient quit smoking: about 30 years ago used a pipe alcohol intake: never substance use type: does not use what type of physical activity do you participate in: aerobics and weight training frequency: 3-4 times per week ROS ROS ED Constitutional Constitutional ED: Denies chills, fever(s) or sweats Eyes Eyes: Denies change in vision ENT ENT ED: Denies dysphagia or sore throat Cardiovascular Cardiovascular: Denies chest pain or leg edema Respiratory/Chest Respiratory/Chest: Denies cough Gastrointestinal Gastrointestinal: Denies abdominal pain, diarrhea, nausea or vomiting Musculoskeletal Musculoskeletal: Denies back pain, extremity pain or neck pain Integumentary Denies wounds Neurologic Neurologic: Denies headache(s) EXAM Physical Exam Const Vital Signs: 09/17/21 23:58 09/18/21 00:02 09/18/21 02:28 Temperature 97.8 F Temperature Source Temporal Pulse Rate 54 L Respiratory Rate 16 16 Respiratory Effort Normal Respiratory Pattern Normal Blood Pressure 123/62 H Blood Pressure Mean 82 Pulse Ox 100 Oxygen Delivery Method Room Air Positive well nourished and well developed General Appearance ED: well developed and NAD HEENT Reports moist mucous membranes HEENT Narrative: Superficial skin avulsions right upper brow along with the frontal scalp, dried blood. No deep lacerations. No active bleeding. No hemotympanums. normocephalic Eyes conjunctivae normal General Eye ED: Yes normal appearance of both eyes Neck no lymphadenopathy and supple General: Negative for tenderness Chest Wall Chest: Negative for tenderness Resp normal respiratory effort and normal air movement Effort and Inspection: symmetric chest movement; Negative for respiratory distress Cardio regular rate, regular rhythm and no murmurs Peripheral Pulses: pulses 2+ throughout GI normal to inspection, nondistended, normoactive bowel sounds and non-tender Palpation: Negative for guarding or rebound tenderness present Back/Spine no CVA tenderness and no thoracic nor lumbar tenderness Extremity normal to inspection Extremity Narrative: Full range of motion x4 extremities. Negative logroll bilateral lower extremities. General Extremety ED: Negative for edema or tenderness General Extremity: Negative for edema Neuro no sensory deficits noted Neuro Narrative: Following some commands, there is some confusion. Sensorium / Orientation: awake and alert Skin Skin Narrative: See above MDM MDM MDM Narrative Medical decision making narrative: Patient dementia history initially unsure with his baseline with initial report with ANO x3 from facility when they called in. Blood glucose was 89. Initial order for urine which was pending. Trauma scans head and neck were negative. Upon spouse arrival she states this is his baseline therefore with no concerns for confusion. Urine was canceled. Vital stable. Patient is a DNR comfort care only. Abrasions were cleansed and dressed by nursing. He will be discharged back to facility. Lab Data Attestation: I reviewed the patient's lab results. Labs: Laboratory Results - last 24 hr 09/18/21 00:40 POC Glucose 89 Radiography Diagnostic Testing: Clinical Impression(s) from Imaging Studies Brain CT 09/18/21 00:12 IMPRESSION: 1. Chronic involutional changes of the brain. 2. No CT evidence of acute intracranial hemorrhage. Electronically Signed: Wendy Stubbs MD at 1:22 EST , Cervical Spine CT 09/18/21 00:12 IMPRESSION: 1. No CT evidence of acute compression or displaced fracture. 2. 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 Electronically Signed: Wendy Stubbs MD at 1:41 EST , Discharge Plan Triage Chief Complaint: Fall ED Provider: Elgin Kan Dx/Rx/DC Orders Clinical Impression: CHI (closed head injury), Abrasion head, Dementia, DNR (do not resuscitate), Fall Instructions: ED Abrasion, ED Head Injury (Adult) Prescriptions: No Action citalopram 20 mg tablet 20 mg PO DAILY RF: 0 memantine 28 MG capsule,sprinkle,ER 24hr 28 mg PO DAILY RF: 0 aspirin 81 mg tablet,delayed release (DR/EC) 81 mg PO DAILY Qty: 30 RF: 1 atorvastatin 40 mg tablet 40 mg PO QHS Qty: 30 RF: 1 lorazepam [Ativan] 0.5 mg tablet 0.5 mg PO BID RF: 0 melatonin 10 mg Tablet 10 mg PO QHS RF: 0 donepezil 10 mg tablet 10 mg PO DAILY RF: 0 Primary Care Provider: Navi Crews Chi Referrals: Navi Crews Chi, MD [Primary Care Provider] - 3-5 Days Activity Restrictions/Additional Instructions: CT head and neck negative. Continue daily wound care for abrasions. Disposition Disposition: Shelter Facility Discharge Location: [facility] Discharge Date/Time: 09/18/21 02:28
[2021-09-18 00:46] LABS: Bedside Glucose 89 mg/dL (74-106)
[2021-09-18 02:28] VITALS: RESP 16
== END 2021-09-18 02:28 | disposition skilled nursing facility (03) ==
PROVIDERS: Emergency Provider Emergency Medicine; PCP Family Medicine Geriatric Medicine; Visit Provider Emergency Medicine
DX: S00.91XA Abrasion of unspecified part of head, initial encounter (principal); F02.80 Dementia in other diseases classified elsewhere, unspecified severity, without behavioral disturbance, psychotic disturbance, mood disturbance, and anxiety; G30.9 Alzheimer's disease, unspecified; W19.XXXA Unspecified fall, initial encounter; S09.90XA Unspecified injury of head, initial encounter; E78.2 Mixed hyperlipidemia; Z87.891 Personal history of nicotine dependence; Z86.73 Personal history of transient ischemic attack (TIA), and cerebral infarction without residual deficits
CPT/HCPCS: 70450; 72125; 82962; 99284

== ENCOUNTER 2021-10-06 20:52 | Emergency (ER) | payer MEDICARE, OTHER, SELFPAY ==
[2021-10-06 20:53] VITALS: BP 124/67; PULSE 54; RESP 18; TEMP 37.1; O2SAT 100; BMI 23.7
--- NOTE | 2021-10-06 21:09 | CT_ITS ---
INDICATION: falls EXAMINATION: CT CERVICAL SPINE - CT Spine Cervical W/O Contrast Injection TECHNIQUE: Helically acquired images were obtained of the cervical spine. 2D reformatted images were reviewed. A radiation dose optimization technique was used for this scan. IV Contrast dosage and agent: None. Axial, coronal and sagittal images through the cervical spine are all roughly 45 degrees from normal scan plane. This does complicate interpretation. COMPARISON: CT brain obtained in conjunction with this exam. Also compared with CT spine 09/18/2021. FINDINGS: VERTEBRAE: No fracture or traumatic subluxation. No discrete lytic or blastic abnormality. Normal alignment. Normal craniocervical junction and cervicothoracic junction. DISCS and SPINAL CANAL: Multilevel degenerative disc and endplate changes as well as facet and uncovertebral joint arthropathy. There does appear to be high-grade neuroforaminal narrowing at C3-4 on the left NECK SOFT TISSUES: No prevertebral soft tissue swelling. There is no cervical adenopathy. LUNG APICES: Significant bilateral apical scarring type opacities extending from the pleural surface are unchanged compared to prior CT cervical spine. CT/Spine Cervical without Contras IMPRESSION: No fracture or malalignment. Multilevel degenerative endplate changes from degenerative disc disease. Multilevel degenerative facet and uncovertebral joint arthropathy with severe neural foraminal narrowing at C3-4 on the left. Electronically Signed: Eyal Rasmussen DO at 22:16 EDT ,
--- NOTE | 2021-10-06 21:09 | CT_ITS ---
INDICATION: head injury EXAMINATION: CT BRAIN - CT Head or Brain W/O Contrast Injection TECHNIQUE: Multiple axial images were obtained of the head without intravenous contrast. A radiation dose optimization technique was used for this scan. IV Contrast dosage and agent: None. COMPARISON: CT head 09/18/2021. FINDINGS: BRAIN PARENCHYMA: No intra- or extra-axial hemorrhage. No intracranial mass or mass effect. Hall/white matter differentiation is maintained and there is no blurring of the basal ganglia. There is no hyperdense vessel. Mild to moderate decreased periventricular white matter suggesting chronic small vessel ischemic changes. Posterior fossa structures are unremarkable. CSF SPACES: Appropriate for age. No hydrocephalus. Basal cisterns are patent. CALVARIUM, SKULL BASE, PARANASAL SINUSES AND MASTOID AIR CELLS: Clear. No discrete lytic or blastic abnormalities. ORBITS: Both globes, extraocular muscles, optic nerves and retrobulbar fat appear unremarkable. ASPECTS Score for Acute Strokes: 10 CT/Brain/Head without Contrast IMPRESSION: Chronic small vessel ischemic changes and diffuse parenchymal volume loss. No acute intracranial pathology. Electronically Signed: Eyal Rasmussen DO at 22:08 EDT ,
--- NOTE | 2021-10-06 22:07 | EDS_ITS ---
HPI HPI - Fall History of Present Illness Chief Complaint: Fall Narrative Narrative: 81-year-old male with history of dementia and a poor informant presenting after a fall at the [facility]. Apparently this was unwitnessed but he was trying to stand up when they found him. He had a small superficial laceration to the superior aspect of the left side of his scalp. He has history of multiple falls. He is not anticoagulated. Patient's is here at the [facility] and feels he is acting at baseline. She is not sure how he fell. She does report that he does fall a lot and since been seen a couple of weeks ago for something similar. She also states that he is a DNR comfort care [facility] Medical History Alzheimer disease CVA (cerebral vascular accident) (2013) Mixed hyperlipidemia Near syncope (02/14/17) Osteoarthritis TIA (transient ischemic attack) (02/2021) Home Medications memantine 28 mg PO DAILY 02/14/17 [History Last Taken 03/01/21 09:00] citalopram 20 mg tablet 20 mg PO DAILY 04/30/19 [History Last Taken 03/01/21 09:00] donepezil 10 mg tablet 10 mg PO DAILY 05/16/19 [History Last Taken 02/28/21 17:00] aspirin 81 mg PO DAILY #30 tab 03/02/21 [Rx Last Taken Unknown] atorvastatin 40 mg PO QHS #30 tab 03/02/21 [Rx Last Taken Unknown] lorazepam [Ativan] 0.5 mg PO BID 09/18/21 [History Last Taken Unknown] melatonin 10 mg PO QHS 09/18/21 [History Last Taken Unknown] lorazepam 0.5 mg PO BID PRN 10/06/21 [History Last Taken Unknown] Allergy/AdvReac Type Severity Reaction Status Date / Time benzocaine Allergy PT UNSURE Verified 10/06/21 20:57 OF REACTION Family History Mother CVA (cerebral vascular accident) Myocardial infarction Sister Colon cancer Father Lung cancer Sister Respiratory disease Surgical History History of knee replacement Social History Smoking Status: Former smoker Tobacco: How many years used: 30 how long ago did patient quit smoking: about 30 years ago used a pipe alcohol intake: never substance use type: does not use what type of physical activity do you participate in: aerobics and weight tr aining frequency: 3-4 times per week ROS ROS ED Review of Systems ROS Unobtainable: due to mental status EXAM Physical Exam Const Vital Signs: 10/06/21 20:53 10/06/21 20:58 Temperature 98.8 F Temperature Source Temporal Pulse Rate 54 L Respiratory Rate 18 Respiratory Effort Normal Respiratory Depth Normal Respiratory Pattern Normal Blood Pressure 124/67 H Blood Pressure Mean 86 Pulse Ox 100 Oxygen Delivery Method Room Air Positive well nourished General Appearance ED: NAD HEENT Reports normocephalic HEENT Narrative: Superficial laceration to the upper left scalp. Is about 2 cm. No skull induration or deformity. Eyes PERRL and EOMs intact bilaterally Neck full ROM General: Negative for tenderness Chest Wall inspection of chest normal and palpation of chest normal Resp normal respiratory effort, No no retractions and clear to auscultation bilaterally Auscultation: Negative for rales or rhonchi Cardio regular rhythm Rate: bradycardia GI non-tender and non-distended Palpation: soft Extremity normal to inspection and full ROM Neuro CN's II-XII intact bilaterally Sensorium / Orientation: alert Psych Psych Narrative: At baseline Skin Skin Narrative: Superficial abrasion as described above MDM MDM MDM Narrative Medical decision making narrative: Patient presenting with superficial laceration to the upper aspect of his scalp on the left. He does have multiple falls in his history. I did not find any signs of injury other than the top of the scalp. There was no report from nursing that he had been ill or was not eating or drinking. He is a fall risk and has multiple falls at his history and this is been a problem. After discussion with the obtain a CT of the brain. The brain is negative. Will discharge patient back to [facility]. All questions answered. Patient stable for discharge at this time. Impression: 1. Fall 2. Closed head injury 3. Superficial laceration 4. History of dementia Radiography Diagnostic Testing: Clinical Impression(s) from Imaging Studies Brain CT 10/06/21 21:09 IMPRESSION: Chronic small vessel ischemic changes and diffuse parenchymal volume loss. No acute intracranial pathology. Electronically Signed: Eyal Rasmussen DO at 22:08 EDT , Cervical Spine CT 10/06/21 21:09 IMPRESSION: No fracture or malalignment. Multilevel degenerative endplate changes from degenerative disc disease. Multilevel degenerative facet and uncovertebral joint arthropathy with severe neural foraminal narrowing at C3-4 on the left. Electronically Signed: Eyal Rasmussen DO at 22:16 EDT , Discharge Plan Triage Chief Complaint: Fall ED Provider: Abdiel Pichardo Dx/Rx/DC Orders Instructions: ED Head Injury (Adult), ED Laceration Small or ..., ED Fall Pr evention Prescriptions: No Action citalopram 20 mg tablet 20 mg PO DAILY RF: 0 memantine 28 MG capsule,sprinkle,ER 24hr 28 mg PO DAILY RF: 0 aspirin 81 mg tablet,delayed release (DR/EC) 81 mg PO DAILY Qty: 30 RF: 1 atorvastatin 40 mg tablet 40 mg PO QHS Qty: 30 RF: 1 lorazepam [Ativan] 0.5 mg tablet 0.5 mg PO BID RF: 0 melatonin 10 mg Tablet 10 mg PO QHS RF: 0 lorazepam 0.5 mg Tablet 0.5 mg PO BID PRN (Reason: Anxiety) RF: 0 donepezil 10 mg tablet 10 mg PO DAILY RF: 0 Primary Care Provider: Navi Crews Chi Referrals: Navi Crews Chi, MD [Primary Care Provider] - Disposition Disposition: Home, Self Care
== END 2021-10-06 23:13 | disposition home or self-care (01) ==
PROVIDERS: Emergency Provider Student in an Organized Health Care Education/Training Program; PCP Family Medicine Geriatric Medicine; Visit Provider Student in an Organized Health Care Education/Training Program
DX: S01.01XA Laceration without foreign body of scalp, initial encounter (principal); G30.9 Alzheimer's disease, unspecified; F02.80 Dementia in other diseases classified elsewhere, unspecified severity, without behavioral disturbance, psychotic disturbance, mood disturbance, and anxiety; W19.XXXA Unspecified fall, initial encounter; Z87.891 Personal history of nicotine dependence; E78.2 Mixed hyperlipidemia; R29.6 Repeated falls; Z86.73 Personal history of transient ischemic attack (TIA), and cerebral infarction without residual deficits
CPT/HCPCS: 70450; 72125; 99284

== ENCOUNTER → 2021-12-14 | Outpatient (REF) | payer MEDICARE, OTHER, SELFPAY ==
[2021-12-14 08:03] LABS: Absolute Lymphocyte Count 1.33 X10^3/uL (0.83-4.51); Absolute Neutrophil Count 4.4 X10^3/uL (2.0-7.7); Basophil# 0.02 X10^3/uL; Basophil% 0.3 % (0-1); Eosinophil# 0.14 X10^3/uL; Eosinophils% 2.1 % (0-5); Hematocrit 35.2 % (40-54); Hemoglobin 11.5 g/dL (13.0-16.5); Lymphocyte # 1.33 X10^3/ul (0.83-4.51); Lymphocyte % 20.4 % (19-41); Mean Corp Hgb Conc 32.7 g/dL (32-36); Mean Corpuscular Hgb 32.6 pg (27.0-32.0); Mean Corpuscular Volume 99.7 fL (80-94); Mean Platelet Vol. 11.2 fl (6.2-12.0); Monocyte# 0.63 X10^3/uL; Monocyte% 9.6 % (0-10); NRBC Flagged by Analyzer 0 % (0-5); Neutrophil # 4.38 X10^3/uL (2.7-7.7); Neutrophil % 67.1 % (47-70); Platelet Count 213 K/mm3 (150-450); RBC Distribution Width CV 14.3 % (11.6-14.6); RBC Distribution Width SD 51.7 fl (35.1-43.9); Red Blood Count 3.53 M/mm3 (4.6-6.2); White Blood Count 6.5 K/mm3 (4.4-11.0)
[2021-12-14 08:42] LABS: ALB/GLOB Ratio 0.9 RATIO (0.9-2.4); AST(SGOT) 93 U/L (15-37); Alanine Aminotransfer ALT/SGPT 141 U/L (16-61); Alkaline Phosphatase 303 U/L (45-117); Anion Gap 6 (5-15); BUN 20 mg/dL (7-18); BUN/Creat Ratio 23.3 RATIO (10-20); Calcium,Total 8.5 mg/dL (8.5-10.1); Chloride 108 mmol/L (98-107); Creatinine, Serum 0.86 mg/dL (0.70-1.30); EST Glomerular Filtration Rate 91 mL/min (>60); Est Glom Filt Rate - Afr Amer 110 mL/min (>60); Globulin 3.5 g/dL (2.2-4.2); Glucose 80 mg/dL (74-106); Potassium 3.7 mmol/L (3.5-5.1); Protein, Total 6.5 g/dL (6.4-8.2); Sodium Level 139 mmol/L (136-145); Thyroid Stim Hormone (TSH) 1.27 uIU/mL (0.358-3.74)
== END | disposition home or self-care (01) ==
LOC: OLS.BROOKB 04:00
PROVIDERS: PCP Family Medicine Geriatric Medicine; Visit Provider Family Medicine
DX: R53.83 Other fatigue (principal); E78.5 Hyperlipidemia, unspecified
CPT/HCPCS: 36415; 80053; 84443; 85025

== ENCOUNTER 2022-01-04 18:46 | Emergency (ER) | payer MEDICARE, OTHER, SELFPAY ==
[2022-01-04] VITALS (10 sets, daily range): BP systolic 86–132; BP diastolic 44–70; PULSE 51–74; RESP 16–18; TEMP 36.3–37.2; O2SAT 96–98; BMI 23.9
--- NOTE | 2022-01-04 18:58 | CT_ITS ---
EXAM: CT CERVICAL SPINE WITHOUT INTRAVENOUS CONTRAST CLINICAL INDICATION: fall TECHNIQUE: Helically acquired images were obtained of the cervical spine without intravenous contrast. 2D reformatted images were reviewed. This CT exam was performed using one or more of the following dose reduction techniques: automated exposure control, adjustment of the mA and/or kV according to patient size, and/or use of iterative reconstruction technique. This report was created using [employer] report [employer] technology. COMPARISON: None. FINDINGS: VERTEBRAE: There is straightening of the normal cervical lordosis. No fracture. No traumatic subluxation. No discrete lytic or blastic abnormality. Normal craniocervical junction and cervicothoracic junction. DISCS/SPINAL CANAL/NEURAL FORAMINA: There is disc space narrowing at C4-5, C5-6 and C6-7. There is left bony neural foraminal narrowing at C3-4. SOFT TISSUES: Unremarkable. No prevertebral soft tissue swelling. LYMPH NODES: Unremarkable. No cervical adenopathy. LUNG APICES: Unremarkable as visualized. Clear. CT/Spine Cervical without Contras IMPRESSION: 1. No acute osseous abnormalities of the cervical spine. 2. Degenerative changes with disc space narrowing and bony neural foraminal narrowing. 3. Straightening of the normal cervical lordosis which may be due to a muscular strain. Electronically Signed: Harsh Trejo MD at 20:53 EDT ,
--- NOTE | 2022-01-04 18:58 | CT_ITS ---
EXAM: CT HEAD WITHOUT INTRAVENOUS CONTRAST CLINICAL INDICATION: head injury TECHNIQUE: Multiple axial images were obtained of the head without intravenous contrast. This CT exam was performed using one or more of the following dose reduction techniques: automated exposure control, adjustment of the mA and/or kV according to patient size, and/or use of iterative reconstruction technique. This report was created using [employer] report generation technology. COMPARISON: None. FINDINGS: BRAIN AND EXTRA-AXIAL SPACES: There is enlargement of ventricular system and cortical sulci. There is hypoattenuation in the periventricular white matter. No intra- or extra-axial hemorrhage. No evidence of acute infarct. No intracranial mass or mass effect. There is preservation of the smith/white matter interface. Posterior fossa structures are unremarkable. Basal cisterns are patent. BONES/JOINTS: Unremarkable. No discrete lytic or blastic abnormalities. SINUSES: Unremarkable as visualized. Clear. MASTOID AIR CELLS: Unremarkable. Clear. ORBITS: Visualized globes, extraocular muscles, optic nerves and retrobulbar fat appear unremarkable. CT/Brain/Head without Contrast IMPRESSION: 1. No acute intracranial abnormality. 2. Underlying senescent change with small vessel ischemia. Electronically Signed: Harsh Trejo MD at 20:51 EDT ,
--- NOTE | 2022-01-04 18:58 | EKG12_ITS ---
Test Reason : FALL Blood Pressure : / mmHG Vent. Rate : 050 BPM Atrial Rate : 050 BPM P-R Int : 166 ms QRS Dur : 084 ms QT Int : 480 ms P-R-T Axes : 010 048 054 degrees QTc Int : 437 ms Sinus bradycardia Low voltage QRS Confirmed by GUTIERREZ MEYERS, MARY ([id number]), newspaper or periodical editor MEJIA MEI ([id number]) on 01/06/2022 11:03:58 AM Referred By: TL Confirmed By:MARY WHITLEY MD
--- NOTE | 2022-01-04 18:58 | RAD_ITS ---
EXAM: XR CHEST, 1 VIEW CLINICAL INDICATION: HYPOTENSION TECHNIQUE: Frontal view of the chest. This report was created using [employer] report generation technology. COMPARISON: None. FINDINGS: LUNGS AND PLEURAL SPACES: Unremarkable. No consolidation or edema. No pneumothorax. No effusion. HEART: Unremarkable. Cardiac silhouette not enlarged. MEDIASTINUM: Central airways and mediastinal contour are unremarkable. BONES/JOINTS: Unremarkable. SOFT TISSUES: Unremarkable. RAD/Chest 1 View (Portable) IMPRESSION: No radiographic evidence of acute cardiopulmonary disease. Electronically Signed: Harsh Trejo MD at 2:55 EDT ,
[2022-01-04] MEDS: 0.9% Normal Saline 1,000 ML 999 ML IV (19:07)
[2022-01-04 19:21] LABS: Absolute Lymphocyte Count 1.38 X10^3/uL (0.83-4.51); Absolute Neutrophil Count 4.1 X10^3/uL (2.0-7.7); Basophil# 0.01 X10^3/uL; Basophil% 0.2 % (0-1); Eosinophil# 0.18 X10^3/uL; Eosinophils% 2.9 % (0-5); Hematocrit 31.3 % (40-54); Hemoglobin 10.1 g/dL (13.0-16.5); Lymphocyte # 1.38 X10^3/ul (0.83-4.51); Lymphocyte % 22.2 % (19-41); Mean Corp Hgb Conc 32.3 g/dL (32-36); Mean Corpuscular Hgb 33.3 pg (27.0-32.0); Mean Corpuscular Volume 103.3 fL (80-94); Monocyte# 0.53 X10^3/uL; Monocyte% 8.5 % (0-10); NRBC Flagged by Analyzer 0 % (0-5); Neutrophil # 4.09 X10^3/uL (2.7-7.7); Neutrophil % 65.7 % (47-70); Platelet Count 159 K/mm3 (150-450); RBC Distribution Width CV 14.5 % (11.6-14.6); RBC Distribution Width SD 54.9 fl (35.1-43.9); Red Blood Count 3.03 M/mm3 (4.6-6.2); White Blood Count 6.2 K/mm3 (4.4-11.0)
[2022-01-04 19:32] LABS: International Normalized Ratio 1.2; Prothrombin Time (Protime)PT. 14.7 SECONDS (11.7-14.9)
[2022-01-04 19:33] LABS: Partial Thromboplast Time 33.9 Seconds (24.1-36.2)
[2022-01-04 19:47] LABS: ALB/GLOB Ratio 0.7 RATIO (0.9-2.4); AST(SGOT) 70 U/L (15-37); Alanine Aminotransfer ALT/SGPT 81 U/L (16-61); Albumin, Serum 2.5 g/dL (3.2-5.0); Alkaline Phosphatase 270 U/L (45-117); Anion Gap 8 (5-15); BUN 25 mg/dL (7-18); BUN/Creat Ratio 26.2 RATIO (10-20); Calcium,Total 8.1 mg/dL (8.5-10.1); Chloride 111 mmol/L (98-107); Creatinine, Serum 0.95 mg/dL (0.70-1.30); EST Glomerular Filtration Rate 81 mL/min (>60); Est Glom Filt Rate - Afr Amer 98 mL/min (>60); Globulin 3.4 g/dL (2.2-4.2); Glucose 137 mg/dL (74-106); Potassium 3.6 mmol/L (3.5-5.1); Protein, Total 5.9 g/dL (6.4-8.2); Sodium Level 144 mmol/L (136-145)
[2022-01-04 19:51] LABS: Lactic Acid 1.9 mmol/L (0.4-1.9)
[2022-01-04 20:16] LABS: Bacteria 0 SEEN /hpf (None Seen); Mucous, Urine 0 SEEN /hpf (<or=2+); Red Blood Cells-Urine 0 SEEN /hpf (0-5); Squamous Epithelial Cells - UA 0 SEEN /hpf (0-5)
[2022-01-04] MEDS: LORazepam 2 MG/ML Syringe 0.5 MG IV (20:26)
[2022-01-04 20:33] LABS: Color, Urine Yellow (Yellow); Glucose, Dipstick Normal (Normal); Ketone-Dipstick 5 mg/dl (Negative); Leukocyte Esterase-Dipstick 100 /ul (Negative); Nitrite-Dipstick Negative (Negative); Occult Blood-Urine Negative /ul (Negative); Protein-Dipstick 15 mg/dl (Negative); Specific Gravity, Urine 1.025 (1.002-1.030); Urine Bilirubin Dipstick Negative (Negative); Urine Clarity Clear (Clear); Urine Urobilinogen Normal (Normal)
--- NOTE | 2022-01-04 21:24 | EDS_ITS ---
HPI HPI - Fall History of Present Illness Chief Complaint: Fall Informant: EMS Narrative Narrative: History of dementia, DNR CC sent in from [facility] unwitnessed fall. There is abrasion to his scalp. Unclear on baseline at this time. Review of medicines he is on baby aspirin. On arrival blood pressure 87/45. Temp 98.9. No additional information. PFSH PFS Medical History Alzheimer disease CVA (cerebral vascular accident) (2013) Mixed hyperlipidemia Near syncope (02/14/17) Osteoarthritis TIA (transient ischemic attack) (02/2021) Home Medications memantine 28 mg capsule sprinkle,extended release 24hr 28 mg PO DAILY MEMORY 02/14/17 [History Last Taken 03/01/21 09:00] citalopram 20 mg tablet 20 mg PO DAILY mood 04/30/19 [History Last Taken 03/01/21 09:00] donepezil 10 mg tablet 10 mg PO DAILY memory 05/16/19 [History Last Taken 02/28/21 17:00] aspirin 81 mg tablet,delayed release 81 mg PO DAILY #30 tabs 03/02/21 [Rx Last Taken Unknown] atorvastatin 40 mg tablet 40 mg PO QHS #30 tabs 03/02/21 [Rx Last Taken Unknown] melatonin 10 mg tablet 10 mg PO QHS 09/18/21 [History Last Taken Unknown] alprazolam 0.25 mg tablet 0.25 mg PO BID 01/04/22 [History Last Taken Unknown] nitrofurantoin monohydrate/macrocrystals 100 mg capsule (Macrobid) 100 mg PO Q12H 5 days #10 caps 01/04/22 [Rx Last Taken Unknown] Allergy/AdvReac Type Severity Reaction Status Date / Time benzocaine AdvReac PT UNSURE Verified 01/04/22 23:25 OF REACTION Family History Mother CVA (cerebral vascular accident) Myocardial infarction Sister Colon cancer Father Lung cancer Sister Respiratory disease Surgical History History of knee replacement Social History Smoking Status: Former smoker Tobacco: How many years used: 30 how long ago did patient quit smoking: about 30 years ago used a pipe alcohol intake: never substance use type: does not use what type of physical activity do you participate in: aerobics and weight training frequency: 3-4 times per week ROS ROS ED Review of Systems ROS Unobtainable: other Details: Limited due to dementia. EXAM Physical Exam Const Vital Signs: 01/04/22 18:48 01/04/22 18:51 01/04/22 18:51 Temperature 98.9 F Temperature Source Temporal Pulse Rate 52 L 52 L Respiratory Rate 18 16 Respiratory Effort Normal Respiratory Depth Normal Respiratory Pattern Normal Blood Pressure 87/45 L 86/44 L Blood Pressure Mean 59 58 Pulse Ox 96 96 96 Oxygen Delivery Method Room Air Room Air Room Air 01/04/22 19:02 01/04/22 19:43 01/04/22 19:57 Temperature 97.9 F Temperature Source Temporal Pulse Rate 58 L 51 L Respiratory Rate 16 Respiratory Effort Respiratory Depth Respiratory Pattern Blood Pressure 90/47 L 132/55 H Blood Pressure Mean 61 80 Pulse Ox 96 97 Oxygen Delivery Method Room Air Room Air 01/04/22 20:28 01/04/22 20:28 01/04/22 22:13 Temperature 97.3 F L 97.3 F L Temperature Source Temporal Temporal Pulse Rate 74 Respiratory Rate 17 Respiratory Effort Respiratory Depth Respiratory Pattern Blood Pressure 115/63 123/60 H Blood Pressure Mean 80 81 Pulse Ox 98 Oxygen Delivery Method Room Air 01/04/22 22:16 01/04/22 23:26 01/04/22 23:00 Temperature 98.0 F 98.2 F Temperature Source Temporal Temporal Pulse Rate 74 Respiratory Rate 16 Respiratory Effort Respiratory Depth Respiratory Pattern Blood Pressure 130/70 H Blood Pressure Mean Pulse Ox 98 Oxygen Delivery Method 01/04/22 23:00 01/05/22 01:06 01/05/22 01:07 Temperature 98.2 F 98.2 F Temperature Source Temporal Temporal Pulse Rate Respiratory Rate 17 Respiratory Effort Respiratory Depth Respiratory Pattern Blood Pressure Blood Pressure Mean Pulse Ox Oxygen Delivery Method Positive well nourished and well developed General Appearance ED: well developed and NAD HEENT Reports moist mucous membranes HEENT Narrative: frontal scalp abrasion, small skin avulsions no active bleeding. normocephalic Eyes General Eye ED: Yes normal appearance of both eyes Neck no lymphadenopathy and supple General: Negative for tenderness Chest Wall palpation of chest normal Chest: Negative for tenderness Resp normal respiratory effort and normal air movement Effort and Inspection: symmetric chest movement; Negative for respiratory distress Cardio regular rate, regular rhythm and no murmurs Peripheral Pulses: pulses 2+ throughout GI normal to inspection, nondistended, normoactive bowel sounds and non-tender Palpation: Negative for guarding or rebound tenderness present Back/Spine no CVA tenderness and no thoracic nor lumbar tenderness Extremity normal to inspection Extremity Narrative: No deformities of the extremities. Pulses intact x4. General Extremety ED: Negative for edema or tenderness General Extremity: Negative for edema Neuro no sensory deficits noted Neuro Narrative: Demented. Sensorium / Orientation: awake and alert Skin Skin Narrative: See above MDM MDM MDM Narrative Medical decision making narrative: Patient history of dementia DNR CC. He is not hospice. Presented blood pressure 87/45. Trauma scans head and neck returned negative. Sepsis labs were obtained due to hypotension. He is given IV fluids. Blood pressure responded to IV fluids. White count 6.2 hemoglobin 10.1 creatinine 0.95 BUN 25. Urine noted only 100 leukocytes no other findings. Culture pending. Lactic acid 1.9. Discussed with patient spouse on her arrival after initial work-up he has been at the facility since July. She is concerned of dehydration due to him not get the fluids. She was concerned of him being more confused than normal. Need for discussion for covered with antibiotics pending culture. Rocephin was given. Prescription for Macrobid for 5 days. Will be discharged back to facility with return precautions. All questions were answered. Lab Data Attestation: I reviewed the patient's lab results. Labs: Laboratory Results - last 24 hr 01/04/22 01/04/22 01/04/22 19:08 19:08 19:08 WBC 6.2 RBC 3.03 L Hgb 10.1 L Hct 31.3 L MCV 103.3 H MCH 33.3 H MCHC 32.3 RDW Std Deviation 54.9 H RDW Coeff of Nya 14.5 Plt Count 159 MPV 11.0 Immature Gran % (Auto) 0.500 Neut % (Auto) 65.7 Lymph % (Auto) 22.2 [place] % (Auto) 8.5 Eos % (Auto) 2.9 Baso % (Auto) 0.2 Absolute Neuts (auto) 4.1 Absolute Lymphs (auto) 1.38 Nucleated RBC % 0 PT 14.7 INR 1.2 APTT 33.9 Sodium 144 Potassium 3.6 Chloride 111 H Carbon Dioxide 25.0 Anion Gap 8 BUN 25 H Creatinine 0.95 Estim Creat Clear Calc 60.00 Est GFR (MDRD) Af Amer 98 Est GFR (MDRD) Non-Af 81 BUN/Creatinine Ratio 26.2 H Glucose 137 H Lactic Acid Calcium 8.1 L Total Bilirubin 0.50 AST 70 H ALT 81 H Alkaline Phosphatase 270 H Total Protein 5.9 L Albumin 2.5 L Globulin 3.4 Albumin/Globulin Ratio 0.7 L Urine Color Urine Clarity Urine pH Ur Specific [place]comb Urine Protein Urine Glucose (UA) Urine Ketones Urine Occult Blood Urine Nitrite Urine Bilirubin Urine Urobilinogen Ur Leukocyte Esterase Urine RBC Urine WBC Ur Squamous Epith Cells Urine Bacteria Urine Mucus 01/04/22 01/04/22 19:08 19:58 WBC RBC Hgb Hct MCV MCH MCHC RDW Std Deviation RDW Coeff of Nya Plt Count MPV Immature Gran % (Auto) Neut % (Auto) Lymph % (Auto) [place] % (Auto) Eos % (Auto) Baso % (Auto) Absolute Neuts (auto) Absolute Lymphs (auto) Nucleated RBC % PT INR APTT Sodium Potassium Chloride Carbon Dioxide Anion Gap BUN Creatinine Estim Creat Clear Calc Est GFR (MDRD) Af Amer Est GFR (MDRD) Non-Af BUN/Creatinine Ratio Glucose Lactic Acid 1.9 Calcium Total Bilirubin AST ALT Alkaline Phosphatase Total Protein Albumin Globulin Albumin/Globulin Ratio Urine Color Yellow Urine Clarity Clear Urine pH 5.0 Ur Specific [place]comb 1.025 Urine Protein 15 H Urine Glucose (UA) Normal Urine Ketones 5 H Urine Occult Blood Negative Urine Nitrite Negative Urine Bilirubin Negative Urine Urobilinogen Normal Ur Leukocyte Esterase 100 H Urine RBC 0 SEEN Urine WBC 0-5 SEEN Ur Squamous Epith Cells 0 SEEN Urine Bacteria 0 SEEN Urine Mucus 0 SEEN Radiography Diagnostic Testing: Clinical Impression(s) from Imaging Studies Brain CT 01/04/22 18:58 IMPRESSION: 1. No acute intracranial abnormality. 2. Underlying senescent change with small vessel ischemia. Electronically Signed: Harsh Trejo MD at 20:51 EDT , Cervical Spine CT 01/04/22 18:58 IMPRESSION: 1. No acute osseous abnormalities of the cervical spine. 2. Degenerative changes with disc space narrowing and bony neural foraminal narrowing. 3. Straightening of the normal cervical lordosis which may be due to a muscular strain. Electronically Signed: Harsh Trejo MD at 20:53 EDT , EKG Initial EKG: Attestation: I personally reviewed and interpreted this EKG as follows: Comments: Sinus rate of 50, no ST or T wave changes. No signs of heart block. Discharge Plan Triage Chief Complaint: Fall ED Provider: Elgin Kan Dx/Rx/DC Orders Clinical Impression: Fall, Alzheimer disease, Head injury, Abrasion of scalp, Acute UTI Instructions: Urinary Tract Infections in Men, ED Head Injury (Adult) Prescriptions: New nitrofurantoin monohyd/m-cryst [Macrobid] 100 mg capsule 100 mg PO Q12H 5 Days Qty: 10 0RF Rx Instructions: must administer with a meal/food No Action citalopram 20 mg tablet 20 mg PO DAILY memantine 28 MG capsule,sprinkle,ER 24hr 28 mg PO DAILY Label Comments: aspirin 81 mg tablet,delayed release (DR/EC) 81 mg PO DAILY Qty: 30 1RF atorvastatin 40 mg tablet 40 mg PO QHS Qty: 30 1RF melatonin 10 mg Tablet 10 mg PO QHS alprazolam 0.25 mg Tablet 0.25 mg PO BID donepezil 10 mg tablet 10 mg PO DAILY Primary Care Provider: Angelica Moreno Referrals: Angelica Moreno MD [Primary Care Provider] - Activity Restrictions/Additional Instructions: Trauma scans head and neck negative. Labs stable urine with mild UTI. Chest x- ray negative. Take antibiotic as prescribed. Disposition Disposition: Shelter Facility Discharge Location: [facility] Discharge Date/Time: 01/05/22 01:08
[2022-01-04 21:44] LABS: White Blood Cells 0-5 SEEN /hpf (0-5)
[2022-01-04] MEDS: Ceftriaxone 1 GM/50 ML BAG IV (22:09)
[2022-01-05 01:06] VITALS: RESP 17
[2022-01-05 01:07] VITALS: TEMP 36.8
== END 2022-01-05 01:08 | disposition skilled nursing facility (03) ==
PROVIDERS: Emergency Provider Emergency Medicine; PCP Family Medicine; Visit Provider Emergency Medicine
DX: S00.01XA Abrasion of scalp, initial encounter (principal); G30.9 Alzheimer's disease, unspecified; N39.0 Urinary tract infection, site not specified; E86.0 Dehydration; Z87.891 Personal history of nicotine dependence; W19.XXXA Unspecified fall, initial encounter; E78.2 Mixed hyperlipidemia; Z86.73 Personal history of transient ischemic attack (TIA), and cerebral infarction without residual deficits; R00.1 Bradycardia, unspecified; I95.9 Hypotension, unspecified; Z79.82 Long term (current) use of aspirin
CPT/HCPCS: 51702; 70450; 71045; 72125; 80053; 81001; 83605; 85025; 85610; 85730; 87040; 87086; 93005; 96361; 96365; 96375; 99285; J7030; A4216

== ENCOUNTER → 2022-03-15 | Outpatient (REF) | payer MEDICARE, OTHER, SELFPAY ==
[2022-03-15 11:21] LABS: Hemoglobin A1c 5.3 % (3.8-5.6)
[2022-03-15 11:46] LABS: Anion Gap 8 (5-15); BUN 23 mg/dL (7-18); BUN/Creat Ratio 28.4 RATIO (10-20); Calcium,Total 8.3 mg/dL (8.5-10.1); Chloride 108 mmol/L (98-107); Creatinine, Serum 0.81 mg/dL (0.70-1.30); EST Glomerular Filtration Rate 98 mL/min (>60); Est Glom Filt Rate - Afr Amer 118 mL/min (>60); Glucose 82 mg/dL (74-106); Potassium 3.7 mmol/L (3.5-5.1); Sodium Level 141 mmol/L (136-145); Thyroid Stim Hormone (TSH) 1.99 uIU/mL (0.358-3.74)
== END ==
LOC: OLS.BROOKB 05:00
PROVIDERS: PCP Family Medicine; Visit Provider Family Medicine
DX: R63.4 Abnormal weight loss (principal); G30.9 Alzheimer's disease, unspecified; Z79.899 Other long term (current) drug therapy
CPT/HCPCS: 36415; 80048; 83036; 84443

== ENCOUNTER 2022-04-19 12:13 | Emergency (ER) | payer MEDICARE, OTHER, SELFPAY ==
[2022-04-19 12:17] VITALS: BP 110/43; PULSE 62; RESP 14; TEMP 35.5; O2SAT 99; BMI 19.8
--- NOTE | 2022-04-19 12:23 | ED.RN ---
PT ARRIVES FROM EMS CALM. PT HAS BEEN CALM FOR THIS RN AT THIS TIME.
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
[2022-04-19 13:53] LABS: Absolute Lymphocyte Count 1.34 X10^3/uL (0.83-4.51); Absolute Neutrophil Count 3.6 X10^3/uL (2.0-7.7); Basophil# 0.03 X10^3/uL; Basophil% 0.5 % (0-1); Eosinophil# 0.28 X10^3/uL; Eosinophils% 4.9 % (0-5); Hematocrit 38.2 % (40-54); Hemoglobin 12.2 g/dL (13.0-16.5); Lymphocyte # 1.34 X10^3/ul (0.83-4.51); Lymphocyte % 23.3 % (19-41); Mean Corp Hgb Conc 31.9 g/dL (32-36); Mean Corpuscular Hgb 31.9 pg (27.0-32.0); Mean Corpuscular Volume 99.7 fL (80-94); Mean Platelet Vol. 10.9 fl (6.2-12.0); Monocyte% 8.7 % (0-10); NRBC Flagged by Analyzer 0 % (0-5); Neutrophil # 3.57 X10^3/uL (2.7-7.7); Neutrophil % 62.1 % (47-70); Platelet Count 149 K/mm3 (150-450); RBC Distribution Width CV 13.5 % (11.6-14.6); RBC Distribution Width SD 49.5 fl (35.1-43.9); Red Blood Count 3.83 M/mm3 (4.6-6.2); White Blood Count 5.8 K/mm3 (4.4-11.0)
[2022-04-19 13:53] LABS: Bacteria 0 SEEN /hpf (None Seen); Mucous, Urine 0 SEEN /hpf (<or=2+); Red Blood Cells-Urine 0 SEEN /hpf (0-5); Squamous Epithelial Cells - UA 0 SEEN /hpf (0-5)
[2022-04-19 13:54] LABS: Anion Gap 6 (5-15); BUN 28 mg/dL (7-18); Calcium,Total 8.6 mg/dL (8.5-10.1); Chloride 108 mmol/L (98-107); Creatinine, Serum 1.12 mg/dL (0.70-1.30); EST Glomerular Filtration Rate 67 mL/min (>60); Est Glom Filt Rate - Afr Amer 81 mL/min (>60); Estimated Creatinine Clearance 49.33 ml/min; Glucose 102 mg/dL (74-106); Potassium 4.1 mmol/L (3.5-5.1); Sodium Level 142 mmol/L (136-145)
[2022-04-19 13:58] LABS: Color, Urine Yellow (Yellow); Glucose, Dipstick Normal (Normal); Ketone-Dipstick Negative (Negative); Leukocyte Esterase-Dipstick 25 /ul (Negative); Nitrite-Dipstick Negative (Negative); Occult Blood-Urine 10 /ul (Negative); Protein-Dipstick Negative (Negative); Specific Gravity, Urine 1.025 (1.002-1.030); Urine Bilirubin Dipstick Negative (Negative); Urine Clarity Clear (Clear); Urine Urobilinogen Normal (Normal)
--- NOTE | 2022-04-19 14:03 | RAD_ITS ---
STUDY: X-RAY CHEST REASON FOR EXAM: Male, 81 years old. Fever TECHNIQUE: PA and lateral views of the chest. COMPARISON: Comparison is made with prior study dated 01/04/2022. FINDINGS: The lungs are clear and expanded. There is no demonstrated pleural abnormality. Normal size heart. Normal mediastinum and ramona. Normal visualized pulmonary arteries. There is atherosclerotic tortuosity of the aortic arch and descending thoracic aorta. There are degenerative changes of the visualized thoracic spine. Normal visualized ribs, clavicles, and shoulders. There is no demonstrated abnormality of the visualized soft tissue structures of the upper abdomen. RAD/Chest PA and Lateral IMPRESSION: No acute abnormality is seen. Electronically Signed: Fitz Moody MD at 14:41 EDT ,
[2022-04-19 14:04] LABS: White Blood Cells 0-5 SEEN /hpf (0-5)
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
--- NOTE | 2022-04-19 15:02 | NURSING ---
CALLED [facility], ETA IS 30 MIN
--- NOTE | 2022-04-19 15:20 | CM.ED ---
HASEEB called and spoke to Wilma and advised that patient will be returning to [facility]. SW updated the patient's and daughter in law, Karen. HASEEB was advised that EMS would be here in 30 minutes. HASEEB called supervisor shipfitters at [facility] and advised that patient is returning via EMS and is scheduled for spanish moss picker in 30 minutes. Plan: Return to [facility] Zeina NAIR
--- NOTE | 2022-04-19 15:47 | NURSING ---
[facility] and director check for [facility] called and informed this nurse that pt was emergency discharged from their facility so pt was unable to return. Reasoning given of this is multiple times this has happened and they don't have ability to care for patient. updated full charge bookkeeper and social work.
--- NOTE | 2022-04-19 17:06 | NURSING ---
this nurse spoke with Destini donato NUCLEAR INSTRUCTOR from [facility] will be sending in someone to evaluate pt for placement.
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
--- NOTE | 2022-04-19 18:58 | BH.SGPN.TEST ---
Group Topic: [] # of Participants: [] Goal of Group: [] Staff Interventions: []
--- NOTE | 2022-04-19 18:58 | CM.ED ---
HASEEB had spoke to Wilma and weekend receptionist at [facility] and advised patient is going back to [facility]. At no times were no concerns or issues voiced. HASEEB was advised by RN Wendy that per [facility] patient could not return. HASEEB called Lillian at [facility] and she said that patient could not return. When psych social worker advised that patient does not meet criteria for inpatient psych she said that this continuity writer was wrong and that patient does meet criteria and then said that [facility] will not take patient with out a psych evaluation. She said that she will call her psych workers from [facility] and they will work on psych placement. She took this continuity writer's name and number and said that someone will call this continuity writer. As of this time HASEEB has not received a call back from Psych [facility]. HASEEB updated Mary Whitney and [facility] Lewis regarding this situation. HASEEB updated patient's that patient can not return to [facility]. HASEEB provided supportive listening. Plan: To be determined. Zeina NAIR
--- NOTE | 2022-04-19 19:30 | ED.RN ---
Pt wandering hallways and attempting to go into other patients rooms. Pt is not easily redirectable and began to get upset and start pushing when staff tried to get patient back into his room. medicated per MAR
[2022-04-19 19:39] VITALS: RESP 16; O2SAT 98
[2022-04-19] MEDS: Ziprasidone IM 20 MG/ML VIAL 10 MG IM (19:39)
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
--- NOTE | 2022-04-19 20:34 | CM.ED ---
HASEEB called [facility] and got Li's number [phone] and called Hien. She has not received [facility] or [facility] paperwork regarding patient. The fax number for [facility] is [phone]. HASEEB will request community product specialist fax the referral packet to [facility] for review. Zeina NAIR
--- NOTE | 2022-04-19 21:20 | CASEMGMT ---
Late entry for 04/19/22 at 2120: Called [facility]acey [facility]LIN to request records of pt's behavior be sent to [facility]. [facility] Neuro[facility]ologist stated she was trying to fax them but they were not going through. States they will continue to facilitate the records being faxed. Hector Rodriguez RN CM
[2022-04-20] VITALS (11 sets, daily range): BP systolic 119–123; BP diastolic 60–78; PULSE 65–77; RESP 14–19; O2SAT 96–100
[2022-04-20] MEDS: LORazepam 2 MG/ML Syringe IM (01:49)
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
--- NOTE | 2022-04-20 03:07 | ED.RN ---
Pt has gotten out of bed 3 additional times. Very hard to redirect. Pt taking gown and depends off. Medicated again per SEP.
[2022-04-20] MEDS: Ziprasidone IM 20 MG/ML VIAL 10 MG IM ×2 (03:15→20:37)
--- NOTE | 2022-04-20 06:29 | ED.RN ---
called [facility] requesting them to fax a med rec over to the ER.
--- NOTE | 2022-04-20 07:32 | ED.RN ---
CRISIS CALLED, PT HAS BEEN REFERRED TO [facility] AND EM[facility] LOPE[facility]
--- NOTE | 2022-04-20 08:16 | ED.RN ---
PATIENT DENIED TO [facility]
[2022-04-20] MEDS: DiphenhydrAMINE 50 MG/ML Syringe IM (08:51)
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
--- NOTE | 2022-04-20 10:12 | CM.ED ---
Social Work Telephone call to [facility] ( ) as voicemail received from 04/19/2022 @ 21:52 reporting that patient has been accepted pending clinical information from [facility]. This social services assistant spoke with Ellen. Ellen reports that patient continues to be accepted pending clinicals from [facility]. Ellen reports to have spoken with catering director at [facility] and an e-mail with the clinicals will be sent hopefully soon. Ellen to call this social services assistant back with update on confirmed acceptance when obtained. Medical team updated. Will continue to follow. Nayeli FORDE, AZUL
--- NOTE | 2022-04-20 13:02 | CM.ED ---
Social Work Telephone call from [facility], Patient has been accepted, pending patient spouse approval as patient spouse is POA for Health Care. [facility] to call spouse and get back to this outreach and education social worker on confirmed acceptance and transportation time. Will continue to follow. Nayeli FORDE, AZUL
--- NOTE | 2022-04-20 14:16 | CM.ED ---
Social Work This social service worker spoke with patient spouse in patient room. This social service worker inquired if [facility] has reached out to patient spouse, Nieves. Nieves states to have not received a phone call. Telephone call to [facility]. This social service worker confirming patient spouse number. [facility] to look into referral status further. Will continue to follow. Nayeli FORDE, AZUL
--- NOTE | 2022-04-20 15:31 | CM.ED ---
Social Work Telephone call to [facility], intake. Intake to reach out to admitting team and figure out what the hold up is. Intake to call this clinical social work therapist back. Will continue to follow. Nayeli FORDE, AZUL
--- NOTE | 2022-04-20 15:49 | CM.ED ---
Social Work Telephone call from [facility]. Consent has been obtained from patient spouse and [facility] will call when transportation is set up. Will continue to follow. Nayeli FORDE, AZUL
--- NOTE | 2022-04-20 18:30 | CM.ED ---
Social Work Telephone call to [facility], intake. This social worker aide inquired about ETA for transportation. [facility] reports that transport is to [facility] patient around 8:30pm tonight. Patient accepted by Dr. Del Valle. Nurse to call report to [phone]. Medical team updated. Patient spouse and patient updated. PLAN: [facility], [facility]. No further services requested or indicated.
--- NOTE | 2022-04-20 19:17 | ED.RN ---
THIS RN CALLED REPORT TO [facility] AT 1918. REPORT TAKEN BY DAVID DURANT.
== END 2022-04-20 20:58 ==
PROVIDERS: Emergency Provider Emergency Medicine; PCP Family Medicine; Visit Provider Emergency Medicine
DX: R45.1 Restlessness and agitation (principal); G30.9 Alzheimer's disease, unspecified; Z87.891 Personal history of nicotine dependence; E78.2 Mixed hyperlipidemia; Z86.73 Personal history of transient ischemic attack (TIA), and cerebral infarction without residual deficits
CPT/HCPCS: 71046; 80048; 81001; 85025; 87428; 96372; 99285; A4216; J3486